=== PATIENT | female | born 1965 | race Caucasian/White ===

== ENCOUNTER 2021-04-20 09:53 | Outpatient (REF) | payer OTHER, SELFPAY ==
--- NOTE | ~2021-04-20 | MM_ITS ---
EXAMINATION: MM SCREENING DIGITAL BREAST TOMOSYNTHESIS, BILATERAL CLINICAL INFORMATION: Screening. Asymptomatic. The lifetime risk of breast cancer based on the Tyrer-Cuzick Model is 6%. COMPARISON: Mammography: 08/07/2018, 07/21/2014 TECHNIQUE: Digital breast tomosynthesis is performed in both the craniocaudal and mediolateral oblique views along with computer-aided detection (CAD). Synthesized 2D images are generated from the tomosynthesis. FINDINGS: There are scattered areas of fibroglandular density (ACR BI-RADS breast composition Category b). There are no significant masses, abnormal calcifications, or other abnormalities. The axilla and skin contours are unremarkable. MM/MM tomosynthesis screening BI IMPRESSION: No mammographic evidence of malignancy. ASSESSMENT: BI-RADS 1: Negative RECOMMENDATION: Routine annual mammography screening. This patient's information was entered into a reminder system with a target due date for their next mammogram.
== END 2021-04-20 09:54 | disposition home or self-care (01) ==
LOC: HO.MAMMO 09:53
PROVIDERS: Visit Provider Internal Medicine
DX: Z12.31 Encounter for screening mammogram for malignant neoplasm of breast (principal)
CPT/HCPCS: 77063; 77067

== ENCOUNTER 2022-03-03 12:26 | Outpatient (REF) | payer OTHER, SELFPAY ==
[2022-03-03 12:57] LABS: Binax Internal Control QC Valid; Binax Now Covid-19 Ag Negative (Negative)
== END 2022-03-03 12:27 | disposition home or self-care (01) ==
LOC: HO.HMGCLDS 12:26
PROVIDERS: Visit Provider Internal Medicine
DX: Z20.822 Contact with and (suspected) exposure to COVID-19 (principal); J06.9 Acute upper respiratory infection, unspecified
CPT/HCPCS: 87811; C9803

== ENCOUNTER 2022-04-28 15:29 | Outpatient (REF) | payer OTHER, SELFPAY ==
--- NOTE | ~2022-04-28 | MM_ITS ---
EXAMINATION: MM SCREENING DIGITAL BREAST TOMOSYNTHESIS, BILATERAL CLINICAL INFORMATION: Screening. Asymptomatic. The lifetime risk of breast cancer based on the Tyrer-Cuzick Model is 6.2%. COMPARISON: Mammography: April 20, 2021 and studies dating back to May 12, 2012 TECHNIQUE: Digital breast tomosynthesis is performed in both the craniocaudal and mediolateral oblique views along with computer-aided detection (CAD). Synthesized 2D images are generated from the tomosynthesis. FINDINGS: The breasts are heterogeneously dense, which may obscure small masses (ACR BI-RADS breast composition Category c). There are no significant masses, abnormal calcifications, or other abnormalities. MM/MM tomosynthesis screening BI IMPRESSION: No significant changes from prior exam. ASSESSMENT: BI-RADS 1: Negative RECOMMENDATION: Routine annual mammography screening. This patient's information was entered into a reminder system with a target due date for their next mammogram.
== END 2022-04-28 15:30 | disposition home or self-care (01) ==
LOC: HO.MAMMO 15:29
PROVIDERS: PCP Family Medicine; Visit Provider Family Medicine
DX: Z12.31 Encounter for screening mammogram for malignant neoplasm of breast (principal)
CPT/HCPCS: 77063; 77067

== ENCOUNTER 2023-08-13 15:31 | Outpatient (REF) | payer OTHER, SELFPAY | END 2023-08-13 15:32 | disposition home or self-care (01) | LOC: HO.MAMMO 15:31 | PROVIDERS: PCP Family Medicine; Visit Provider Family Medicine | DX: Z12.31 Encounter for screening mammogram for malignant neoplasm of breast (principal) | CPT/HCPCS: 77063; 77067 ==

== ENCOUNTER → 2023-08-13 16:15 | Outpatient (BNV) | payer OTHER, SELFPAY | PROVIDERS: PCP Family Medicine; Visit Provider Radiology Diagnostic Radiology | DX: Z12.31 Encounter for screening mammogram for malignant neoplasm of breast (principal) | CPT/HCPCS: 77063; 77067 ==

== ENCOUNTER 2023-11-26 15:22 | Outpatient (AMB) | payer OTHER, SELFPAY ==
--- NOTE | 2023-11-26 15:23 | AM.OFFWIN_ITS ---
Intake Vital Signs 3 11/26/23 15:27 Height 5 ft 3 in Weight 167 lb BMI 29.6 BP 130/82 Blood Pressure Location Rt brachial Position Sitting Pulse 92 Pulse Source Pulse Oximeter Temp 97.9 F Temp Source Temporal Artery Scan Pulse Oximetry (%) 97 Intake Visit Reasons: Ep Pain on top of left foot , cant walk Intake Note: pt is here for pain on top of left foot, unable to walk Patient Tobacco Use Status: Never used Tobacco Allergies No Known Allergies [No Known Allergies*] Allergy (Verified 11/26/23 15:24) Do you need a note to return to daycare/school/sports/work: No HPI HPI Comments 2 History of Present Illness0 Details 58 y/o female patient who presents to [facility] with c/o Pain on her left foot - dorsal aspect. Pain started today afternoon. Denies trauma or injury. PFSH Social History Patient Tobacco Use Status: Never used Tobacco Review of Systems Const All systems reviewed & are unremarkable except as noted in HPI and below Physical Exam Vital Signs: Last Vital Signs Temp 97.9 F 11/26/23 15:27 Pulse 92 11/26/23 15:27 BP 130/82 11/26/23 15:27 Pulse Ox 97 11/26/23 15:27 BMI result Body Mass Index 29.6 Const General: comfortable and no acute distress Orientation/consciousness: patient oriented x3 Neuro Other: Walks with a limp due to pain General: patient oriented x3 and moves all extremities Extrem Right lower extremity: normal to inspection and full ROM Left lower extremity: foot Details: normal capillary refill, normal to inspection, tenderness Location: of the dorsal foot Location: medially and toes with normal ROM; no unusual warmth and no edema Ankle/foot/toe images: 2 1. Tenderness to palpation, normal color skin, no trauma or injury. Psych Speech and movement: Normal speech and movement present Assessment & Plan Assessment & Plan (1) Foot pain, left: Code(s): M79.672 - Pain in left foot Plan: -Rest - IceHot - Ibuprofen for pain relief - Wrapped foot with Benedicto Medications: New 2 diclofenac sodium 1% (Voltaren Arthritis Pain) apply directly to the top of affected foot 2 grams topical BID 100 grams 0RF M79.672 - Pain in left foot ibuprofen 800 mg PO Q8H 30 tabs 0RF M79.672 - Pain in left foot cyclobenzaprine 10 mg PO BEDTIME 20 tabs 0RF M79.672 - Pain in left foot Coding Level of Care Code Est Pt Level 3 (93438) Diagnoses Foot pain, left M79.672 Time Spent (min) 15
[2023-11-26 15:27] VITALS: BP 130/82; PULSE 92; TEMP 36.6; O2SAT 97; BMI 29.6
== END 2023-11-26 16:34 | disposition home or self-care (01) ==
PROVIDERS: PCP Family Medicine; Visit Provider Nurse Practitioner Family
DX: M79.672 Pain in left foot (principal)
CPT/HCPCS: 99213

== ENCOUNTER 2024-07-05 12:29 | Outpatient (AMB) | payer OTHER, SELFPAY ==
--- OUTSIDE RECORDS SUMMARY | 2024-07-05 12:31 | XMS_ITS ---
Author Name [facility] Organization Unknown History of Medication Use Medication Directions Dispensed Refills Start Date End Date Stat venlafaxine 37.5 mg tablet TAKE 1 TABLET BY MOUTH AT BEDTIME FOR 7 DAYS, THEN 2 TABLETS AT BEDTIME 01/31/2023 active meclizine 25 mg tablet TAKE 1 TABLET BY MOUTH THREE TIMES A DAY NEEDED FOR DIZZINESS 01/31/2023 active meclizine 25 mg tablet TAKE 1 TABLET BY MOUTH THREE TIMES A DAY NEEDED FOR DIZZINESS 01/31/2023 active duloxetine 30 mg capsule,delayed release TAKE 1 CAPSULE BY MOUTH EVERY DAY 01/31/2023 active hydroxyzine HCl 25 mg tablet TAKE 1 TABLET BY MOUTH EVERY DAY IN THE EVENING 01/31/2023 active cholecalciferol (vitamin D3) 50 mcg (2,000 unit) capsule TAKE 1 CAPSULE BY MOUTH EVERY DAY 01/31/2023 active ondansetron 4 mg disintegrating tablet TAKE 1 TABLET BY MOUTH EVERY 8 HOURS NEEDED 01/31/2023 active Problems Problem Status Onset Date Problem Type Date of Resoluti on Source Pain of left knee joint active 2023-01-28 ProblemAct ENS_AONECT
--- NOTE | 2024-07-05 13:28 | AM.OFFWIN_ITS ---
Intake Vital Signs 07/05/24 13:29 Weight 170 lb 6 oz BP 128/80 Blood Pressure Location Rt brachial Position Sitting Pulse 73 Pulse Source Pulse Oximeter Pulse Oximetry (%) 97 Oxygen Delivery Method Room Air Intake Visit Reasons: EP-dizziness Intake Note: Patient here for nausea and dizziness that started Thursday. Patient Tobacco Use Status: Never used Tobacco Allergies No Known Allergies [No Known Allergies*] Allergy (Verified 07/05/24 13:29) Do you need a note to return to daycare/school/sports/work: No HPI HPI Comments History of Present Illness Details This is a 58-year-old female with a past medical history of hyperlipidemia and vertigo presenting for evaluation of nausea and lightheadedness that she has had intermittently over the past 4 days. Patient states at 4:00 a.m. on ThursdayJuly 01 the patient woke up to use the bathroom and she felt there was an intense spinning sensation coupled with lightheadedness that lasted for under 1 hour. Since that time the patient has not had such a significant episode but has felt lightheaded with nausea. Patient denies any vomiting, chest pain, shortness of breath, fevers, chills, visual changes or sinus pressure. Patient has not taken any medication for treatment of her symptoms. 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 [facility] Social History Patient Tobacco Use Status: Never used Tobacco Review of Systems Const All systems reviewed & are unremarkable except as noted in HPI and below Reports no additional complaints, Denies body aches, Denies daytime sleepiness, Denies difficulty sleeping, Denies frequent falls and Denies night sweats Eyes Reports no additional complaints, Denies change in vision, Denies loss of peripheral vision, Denies seeing flashes and Denies spots in vision ENT Reports no additional complaints, Reports vertigo, Reports dizziness and Denies otalgia Card Reports no additional complaints and Denies syncope Resp Reports no additional complaints GI Reports no additional complaints Reports no additional complaints Musc Reports no additional complaints Skin/Breast Reports system reviewed and no additional complaints, except as documented Neuro Reports no additional complaints, Reports as per HPI, Reports vertigo, Reports dizziness, Denies syncope, Denies frequent falls and Denies lack of coordination Psych Reports no additional complaints Endo Reports no additional complaints Gerard/Lymph Reports no additional complaints Aller/Immun Reports no additional complaints Physical Exam Vital Signs: Last Vital Signs Pulse 73 07/05/24 13:29 BP 128/80 07/05/24 13:29 Pulse Ox 97 07/05/24 13:29 Oxygen Delivery Method Room Air 07/05/24 13:29 Const General: cooperative, healthy appearing, comfortable, no acute distress, well developed, alert, awake and Physically active Nutritional Appearance: average body habitus Orientation/consciousness: patient oriented x3 Limitations: no limitations HEENT Head: Yes normal to inspection, Yes normocephalic and Yes atraumatic Ears: hearing grossly normal bilaterally, TM's normal bilaterally and EAC's normal General nose exam: Normal external nose present Face and sinus: Yes normal facial exam and Yes sinuses nontender Mouth: Normal oral and palatal mucosa present and moist mucous membranes Throat: Yes posterior oropharynx normal Eyes General: appearance normal, both eyes and all related structures Visual Altamirano: normal visual altamirano by confrontation Alignment and Position: alignment normal Periorbital: periorbital findings normal Eyelids: Yes eyelids normal Conjunctivae: conjunctivae normal Sclerae: sclerae normal Corneas: corneas normal Pupils: Equal, round and reactive pupils present and Pupils normal by confrontation EOM: EOMs intact bilaterally Direct Ophthalmoscopy: no photophobia Cardio Rate: regular rate Rhythm: regular rhythm Neuro General: patient oriented x3 Cranial nerves: Yes CN's II-XII intact bilaterally and Yes Equal, round and reactive pupils present Cognition (Neuro): normal cognition Gait exam (Neuro): Normal gait present Psych Appearance: grossly normal Mental Status: mental status grossly normal Insight: Good insight present (Psych) Judgement: Good judgement present (Psych) Assessment & Plan Assessment & Plan (1) Lightheadedness: Comment: Patient has not had another significant episode of vertigo; etiologies of vertigo and lightheadedness have been reviewed with this patient and she will be discharged home with meclizine. Code(s): R42 - Dizziness and giddiness Plan: Meclizine up to 3 times a day the as needed for lightheadedness; please follow up with your primary care provider within 4 weeks for a re-evaluation of your symptoms and further testing as needed. (2) Nausea: Code(s): R11.0 - Nausea Plan: Zofran ODT t.i.d. p.r.n. nausea. Patient is encouraged to stay very well hydrated with clear fluids. Medications: New ondansetron 4 mg PO Q8H PRN 10 tabs 0RF nausea and vomiting meclizine 12.5 mg PO TID PRN 10 tabs 0RF dizziness Coding Level of Care Code Est Pt Level 3 (78213) Diagnoses Lightheadedness R42 Nausea R11.0 Time Spent (min) 20
[2024-07-05 13:29] VITALS: BP 128/80; PULSE 73; O2SAT 97
== END 2024-07-05 14:26 | disposition home or self-care (01) ==
PROVIDERS: PCP Family Medicine; Visit Provider Physician Assistant
DX: R42 Dizziness and giddiness (principal); R11.0 Nausea

== ENCOUNTER → 2024-07-05 12:29 | Outpatient (BNVA) | payer OTHER, SELFPAY | PROVIDERS: PCP Family Medicine; Visit Provider Physician Assistant ==

== ENCOUNTER 2024-10-03 09:29 | Outpatient (REF) | payer OTHER, SELFPAY | END 2024-10-03 09:30 | disposition home or self-care (01) | LOC: HO.MAMMO 09:29 | PROVIDERS: Visit Provider Family Medicine | DX: Z12.31 Encounter for screening mammogram for malignant neoplasm of breast (principal) | CPT/HCPCS: 77063; 77067 ==

== ENCOUNTER → 2024-10-03 10:00 | Outpatient (BNV) | payer OTHER, SELFPAY | PROVIDERS: Visit Provider Internal Medicine | DX: Z12.31 Encounter for screening mammogram for malignant neoplasm of breast (principal) | CPT/HCPCS: 77063; 77067 ==

== ENCOUNTER 2025-04-19 12:46 | Outpatient (AMB) | payer OTHER, SELFPAY ==
[2025-04-19 13:49] VITALS: BP 128/70; PULSE 71; O2SAT 100; BMI 30.5
--- NOTE | 2025-04-19 13:49 | AM.OFFWIN_ITS ---
Intake Vital Signs 04/19/25 13:49 Height 5 ft 3 in Weight 172 lb BMI 30.5 BP 128/70 Blood Pressure Location Rt brachial Position Sitting Pulse 71 Pulse Source Pulse Oximeter Pulse Oximetry (%) 100 Intake Visit Reasons: ep sick since thursday possible flu Intake Note: pt presents chest congestion with coughing, sinus congestion, fever, body aches, ear pain Patient Tobacco Use Status: Never used Tobacco Allergies No Known Allergies (No Known Allergies*) Allergy (Verified 04/19/25 13:50) Do you need a note to return to daycare/school/sports/work: Yes HPI HPI Comments History of Present Illness Details History - The patient is a 59-year-old female pr esenting with symptoms suggestive of a viral upper respiratory infection. - Symptoms began on Thursday, including merissa dy aches, headache, nasal congestion, and sore throat. - Initial symptoms included chills and f ever, but no fever currently. - No chest pain, shortness of breath, ab dominal pain, vomiting, or diarrhea reported. - The patient has been using Theraflu fo r symptom management and received a flu shot last month. - She was told by her employer to have a flu test done. - She did have her flu vaccine 2 weeks a go. - She denies sick contacts, smoking, or travel. Physical Exam General: Cooperative, healthy appearing, comfortable and no acute distress Orientation/consciousness: Patient oriented x3 Limitations: No limitations Head: Headache reported Ears: Hearing grossly normal bilaterally, external ears normal and TM's normal bilaterally Nose: Stuffy nose reported, normal external nose present, normal nares present, and no nasal discharge present. Face and sinus: Sinuses nontender to palpation. Mouth: Normal oral and palatal mucosa present and moist mucous membranes noted. Throat: Sore throat reported. Tonsils normal. Uvula is midline. Posterior oropharynx with erythema and no exudates. Eyes: Appearance normal, both eyes and all related structures Neck: Normal visual inspection, full ROM. No lymphadenopathy noted. Respiratory: Clear to auscultation bilaterally. Normal respiratory effort, able to speak in complete sentences. No respiratory distress, not tachypneic, no tripod positioning and no use of accessory muscles. Cardiovascular: Regular rate and rhythm. Normal S1 and S2 Skin: No rashes or lesions noted Patient was informed and verbally consented to the use of an ambient scribe for clinic note documentation during this visit [facility] Social History Patient Tobacco Use Status: Never used Tobacco Review of Systems Const All systems reviewed & are unremarkable except as noted in HPI and below Physical Exam Vital Signs: Last Vital Signs Pulse 71 04/19/25 13:49 BP 128/70 04/19/25 13:49 Pulse Ox 100 04/19/25 13:49 BMI result Body Mass Index 30.5 Assessment & Plan Assessment & Plan (1) Upper respiratory tract infection: Code(s): J06.9 - Acute upper respiratory infection, unspecified Qualifiers: URI type: unspecified viral URI Qualified Code(s): J06.9 - Acute upper respiratory infection, unspecified Plan Most likely viral illness vs flu vs covid vs RSV plan - A respiratory panel was conducted to rule out influenza. - Symptomatic treatment with Theraflu was recommended. - Flonase and zyrtec D daily as well - The patient was advised to continue monitoring symptoms and return if they worsen. - tylenol or motrin as needed for pain or fever - follow up with PCP Orders: Orders Resp Pathogen Panel - [facility] Today J06.9 - Acute upper respiratory infection, unspecified Medications: New fluticasone propionate 50 mcg/actuation administer into each nostril 1 spray intranasal Q12H 16 grams 0RF cetirizine-pseudoephedrine 5-120 mg ER 1 tab PO BID 14 tabs 0RF 7 days Coding Level of Care Code Est Pt Level 3 (40867) Diagnoses Viral upper respiratory tract infection J06.9 URI type: unspecified viral URI
--- OUTSIDE RECORDS SUMMARY | 2025-04-19 16:08 | XMS_ITS | Clinical Summary ---
Author Organization [facility] Address [address] [address] Phone Care Team Providers Care Senior Cytotechnologist Name Role Phone Shanti Lynch MD Primary Care Pr ovider Allergies No known active allergies Medications DULoxetine (CYMBALTA) 30 MG capsule Take 1 capsule by mouth every morning. 3 Active cholecalciferol (VITAMIN D3) 2,000 unit capsule Take 1 tablet by mouth daily. 2 Active methylPREDNISol one (MEDROL DOSEPACK) 4 mg tablet follow package directions 21 tablet 3 Active Social History Tobacco Use Types Packs/Day Years Used Date Smoking Tobacco: Never Assessed Education Answer Date Recorded Are you interested in more education? Not on suresh e 11/01/2022 Are you concerned about learning? Not on file 11/01/2022 No 11/01/2022 No 11/01/2022 Digital Access Answer Date Recorded No 12/02/2022 No 12/02/2022 Reliable internet access at home? Not on file 12/02/2022 Device with a working camera? Not on file Intimate Partner Violence Answer Date R ecorded Are you denied basic needs s uch as food, clothing, or medical care? No 04/12/2023 In the past 12 months have y ou been in a relationship with a person who hurts, threatens, or tries to control you? No 04/12/2023 Are you denied basic needs s uch as food, clothing, or medical care? No 04/12/2023 In the past 12 months have y ou been in a relationship with a person who hurts, threatens, or tries to control you? No 04/12/2023 Comments Unknown Sex and Gender Information Value Date Recorded Sex Assigned at Female 08/03/2022 1:13 PM EST Legal Sex Female 1:11 PM EST Gender Identity Female 08/03/2022 1:13 PM EST Sexual Orientation Straight 08/03/2022 1: 13 PM EST Last Filed Vital Signs Vital Sign Reading Time Taken Comments Blood Pressure 124/76 04/12/2023 3:03 PM EDT Pulse 72 04/12/2023 3:03 PM EDT Temperature 36.4 C (97.6 F) 04/12/2023 3:03 PM EDT Respiratory Rate 19 04/12/2023 3:03 PM EDT Oxygen Saturation 98% 04/12/2023 3:03 PM EDT Inhaled Oxygen Concentration - - Weight 73 kg (161 lb) 04/12/2023 12:36 PM EDT Height 160 cm (5' 3 ) 04/12/2023 12:36 PM EDT Body Mass Index 28.52 04/12/2023 12:36 PM EDT Plan of Treatment Health Maintenance Due Date Last Done Comments Adult Td,Tdap Booster 1965 LIPID PANEL 1965 DEPRESSION SCREENING 1977 SMOKING Hx and SMOKELESS TOB ACCO SCREENING 1978 HEPATITIS C SCREENING 09/10/1983 HIV ONE-TIME SCREENING (18-6 5 YEARS) 09/10/1983 PAP SMEAR 1986 MAMMOGRAM 2005 COLOGUARD 2010 COLONOSCOPY 2010 COLORECTAL CANCER SCREENING 2010 FIT TEST 2010 FOBT 2010 SIGMOIDOSCOPY 2010 VIRTUAL COLONOSCOPY 2010 PNEUMOCOCCAL VACCINES (50+ y ears) (1 of 1 - PCV) 09/10/2015 ZOSTER VACCINES (1 of 2) 09/10/2015 INFLUENZA VACCINE (#1) 2025 COVID-19 VACCINE ( - 2024-2 6 season) 2025 SCREENING FOR DIABETES 08/03/2025 08/03/2022 RSV VACCINE (1 - 1-dose 75+ series) 2040 HEPATITIS A VACCINES Aged Out No long er eligible based on patient's age to complete this topic HIB VACCINES Aged Out No longer eligi ble based on patient's age to complete this topic MENINGOCOCCAL VACCINES (ACWY) Aged Out No longer eligible based on patient's age to complete this topic MENINGOCOCCAL VACCINES (B) Aged Out N o longer eligible based on patient's age to complete this topic Medical Devices Not on file Insurance [facility] HMO Care Teams Senior Cytotechnologist Relationship Specialty Start Date End Date Shanti Lynch MD PCP - General Family Medicine 04/12/23 Additional Source Comments The information contained in this document represents components of the legal health record. It is not the complete legal health record.[facility]
--- OUTSIDE RECORDS SUMMARY | 2025-04-19 16:08 | XMS_ITS | Clinical Summary ---
Author Organization 175 [facility] Address [address] [place] [address] Phone Care Team Providers Care Java Xml Developer Name Role Phone Shanti Lynch MD Primary Care Pr ovider Allergies Active Allergy Reactions Criticality Noted Date Comments Levonorgestrel-Ethinyl Estrad 2024 Medications cholecalciferol (VITAMIN D-3) 50 mcg (2,000 unit) capsule Take 1 capsule (2,000 Units total) by mouth 1 (one) time each day. 4 Active hydrOXYzine HCL (ATARAX) 25 mg tablet Take 1 tablet (25 mg total) by mouth 1 (one) time each day in the evening. 2 Active meclizine (ANTIVERT) 25 mg tablet Take 1 tablet (25 mg total) by mouth 3 (three) times a day if needed. Active ondansetron ODT (ZOFRAN-ODT) 4 mg disintegrating tablet Take 1 tablet (4 mg total) by mouth every 8 (eight) hours if needed. Active venlafaxine (EFFEXOR) 37.5 mg tablet TAKE 1 TABLET BY MOUTH AT BEDTIME FOR 7 DAYS, THEN 2 TABLETS AT BEDTIME Active albuterol HFA (PROAIR HFA ; PROVENTIL HFA ; VENTOLIN HFA) 90 mcg/actuation inhaler TAKE 2 PUFFS BY MOUTH EVERY 3 TO 4 HOURS NEEDED 5 Active estradioL (ESTRACE) 0.01 % (0.1 mg/gram) vaginal cream 1g PV nightly x2 weeks then twice weekly thereafter 34 g 3 5 Active Active Problems Problem Noted Date Diagnosed Date Anxiety and depression 06/17/2024 DJD (degenerative joint disease) of cervical spi ne 04/07/2024 Lumbar spondylosis 04/07/2024 Trochanteric bursitis of left hip 04/07/2024 Primary insomnia 04/06/2024 Arthralgia of left knee 01/28/2023 Mixed hyperlipidemia 01/23/2023 Neuroforaminal stenosis of lumbosacral spine Chronic urticaria 09/29/2022 Overweight (BMI 25.0-29.9) 09/29/2022 Prediabetes 01/30/2020 Vitamin D insufficiency 10/04/2018 ARTHUR (stress urinary incontinence, female) 2017 Overview (06/17/2024): Last Assessment & Plan: Recommend kegel exercises. Chronic constipation 01/30/2017 Overview (06/17/2024): Last Assessment & Plan: Recommended Senna to have soft BM daily Overactive bladder 07/04/2016 Overview (06/17/2024): Last Assessment & Plan: Discussed medications for OAB, however she declines. Offered referral to urogynecology, however she declines. Reviewed recommendation for avoidance of bladder irritants and bladder training. Uterine leiomyoma 12/14/2015 Encounters Date Type Department Care Team Description 02/27/2025 2:45 PM EDT Office Visit [facility] [address] [place] [address] Teresa Espinoza DO Nocturia (Primary Dx); Fibroids from Last 3 Months Immunizations Immunization Administration Dates Next Due Influenza trivalent, 0.5mL, preservative free (Fluarix; FluLaval; Fluzone) ages 6mo and older (Afluria) 3 years and older 03/23/2024 Moderna SARS-CoV-2 COVID-19, mRNA, LNP-S, preservative free 03/23/2024 PPD Test 09/29/2017 Pfizer SARS-CoV-2 COVID-19, mRNA, LNP-S, preservative free 08/05/2020,07/15/2020 Tdap Tetanus diptheria acell ular pertussis (Boostrix; Adacel) 7yo and older 10/01/2018 Surgical History Surgery Date Site/Laterality Comments TUBAL LIGATION PROCEDURE: HISTORICAL TUBAL LIGATION OTHER SURGICAL HISTORY 12/10/15 PROCEDURE: COLON CA SCRN NOT HI RSK IND; COMMENT: nl to the cecum Medical History Medical History Date Comments Depression DX:Depression Anxiety DX:Anxiety RALPH (iron deficiency anemia) DX: RALPH (iron deficiency anemia) Chronic constipation 01/30/2017 DX:Chronic constipation COVID-19 virus detected 11/02/2019 DX:COVID -19 virus detected; COMMENT: 10/28/2019 Family History Medical History Relation Name Comments Diabetes Aunt kidney problems ; +smoker Alcohol abuse Brother 1 liver problems ; ascites Drug abuse Brother 2 Other: tongue cancer Brother 3 +smoker and EtOH abuse Stomach cancer Father Brain Aneurysm Maternal Grandmother ruptu re Heart attack Mother TIA, DM, obese Lung cancer Mother Drug abuse Son 1 Stomach cancer Uncle maternal Breast cancer Neg Hx Colon cancer Neg Hx Ovarian cancer Neg Hx Pancreatic cancer Neg Hx Prostate cancer Neg Hx Uterine cancer Neg Hx Relation Name Status Comments Aunt DM II Brother 1 Alive EtOH Brother 2 Tongue CA Brother 3 Addiction; pass ed in [place] Daughter 1 Alive 1984; Jennifer; healthy Daughter 2 Alive 1986; Leigh Ann; ov erweight; otherwise healthy Father Throat CA Maternal Grandfather Maternal Grandmother Mother Depression, T2D M, [place], [place] Paternal Grandfather unknown Paternal Grandmother unknown Son 1 Alive 1985; Huey; add iction Son 2 Alive 1993; Abimael; hea lthy Uncle maternal Social History Tobacco Use Types Packs/Day Years Used Date Smoking Tobacco: Never Smokeless Tobacco: Never Tobacco Cessation:Counseling Given: Not Answered Alcohol Use Standard Drinks/Week Comments No 0 (1 standard drink = 0.6 oz pur e alcohol) Comments Unknown Sex and Gender Information Value Date Recorded Sex Assigned at Not on file Legal Sex Female 1:56 PM EST Gender Identity Not on file Sexual Orientation Not on file Obstetrics History Para Term AB IAB SAB Ectopic Multiple Livin g Live Births 4 4 4 4 4 Date Outcome GA Total Labor Labor/2nd/3rd Weight Sex Type Anes PTL Marlin A1 A5 Name Clin Term Living Term Living Term Living Term Living Last Filed Vital Signs Vital Sign Reading Time Taken Comments Blood Pressure 114/67 02/27/2025 2:33 PM EDT Pulse 97 02/27/2025 2:33 PM EDT Temperature 36.3 C (97.3 F) 11/17/2024 12:13 PM EDT Respiratory Rate 14 02/27/2025 2:33 PM EDT Oxygen Saturation 96% 11/17/2024 12:13 PM EDT Inhaled Oxygen Concentration - - Weight 76.7 kg (169 lb) 02/27/2025 2:33 PM EDT Height 150 cm (4' 11.06 ) 02/27/2025 2:33 PM EDT Body Mass Index 34.07 02/27/2025 2:33 PM EDT Plan of Treatment Upcoming Encounters Date Type Department Care Team (Late st Contact Info) Description 05/09/2025 1:00 PM EST Office Visit Urogynecology [address] [phone] Maria A Payne MD [address] [place] [address] [address] [place] [address] 05/11/2025 4:00 PM EST Office Visit [facility] [address] [facility] [address] [place] [phone] Lorene Burnette PA [address] [facility] [address] [place] [address] 06/19/2025 3:00 PM EST Office Visit Adult Medicine [facility] - [address] [phone] Shanti Lynch MD [address] [place] [address] Health Maintenance Due Date Last Done Comments Colorectal Cancer Screening: Colonoscopy 1965 Hepatitis B Vaccines (1 of 3 - 19+ 3-dose series) 1984 Pneumococcal Vaccine: 50+ Years (1 of 1 - PCV) 09/10/2015 Zoster Vaccines (1 of 2) 09/10/2015 Social Influencers of Health Screening 06/14/2022 Depression Screening 07/06/2024 COVID-19 Vaccine (4 - 2024-2 6 season) 2025 03/23/2024, 08/05/2020, 07/15/2020 Influenza Vaccine (#1) 2025 03/23/2024 Cervical Cancer Screening: HPV 10/16/2025 10/16/2020 Breast Cancer Screening 10/17/2026 10/18/19 25, 12/09/2016 DTaP,Tdap,and Td Vaccines (2 - Td or Tdap) 10/01/2028 10/01/2018 Cholesterol Screening (Lipid Panel) 04/15/2029 04/15/2024, 04/15/2024 RSV Immunization Adult Patients (1 - 1-dose 75+ series) 2040 Hepatitis C Screening Completed 10/15/2011 HIV Screening Completed 06/10/2017 HIB Vaccines Aged Out No longer eligi ble based on patient's age to complete this topic HPV Vaccines Aged Out No longer eligi ble based on patient's age to complete this topic Hepatitis A Vaccines Aged Out No long er eligible based on patient's age to complete this topic IPV Vaccines Aged Out No longer eligi ble based on patient's age to complete this topic MMR Vaccines Aged Out No longer eligi ble based on patient's age to complete this topic Meningococcal ACWY Vaccine Aged Out N o longer eligible based on patient's age to complete this topic Meningococcal B Vaccine Aged Out No l onger eligible based on patient's age to complete this topic RSV Immunization Patients Under 20 months Aged Out No longer eligible b ased on patient's age to complete this topic Varicella Vaccines Aged Out No longer eligible based on patient's age to complete this topic Procedures Procedure Name Priority Date/Time Associated Diagnosis Comments MG MAMMO DIGITAL DIAGNOSTIC BILAT Routine 10/17/2024 1:35 PM EDT LIPID PANEL Routine 04/15/2024 HPV Routine 10/16/2020 HIV SCREENING Routine 06/10/2017 HEPATITIS C SCREENING Routine 10/15/2011 from Last 3 Months or Most Recently Relevant to Health Maintenance Results * MG Mammo Digital Diagnostic bilat (10/17/2024 1:35 PM EDT) Anatomical Region Laterality Modality Breast Bilateral Mammography Historical Provider IMG BI PROCEDURES Final R esult * (ABNORMAL) Lipid panel (04/15/2024) [facility] LDL/HDL Ratio 3 0 - 4 Triglycerides 57 0 - 150 mg/dL Cholesterol 251(A) 0 - 200 mg/dL HDL 99 >=40 mg/dL LDL Cholesterol 141(A) 0 - 100 mg/dL Blood Venous blood specimen / Unknown Result [facility] Provider LAB BLOOD ORDERABLES Michaela l Result * Cervical Cancer Screening: HPV (10/16/2020) [facility] Cervical Cancer Screening: HPV negative, abstracted [facility] Provider HEALTH MAINTENANCE Final Result * HIV Screening (06/10/2017) [facility] HIV Screening abstracted [facility] Provider HEALTH MAINTENANCE Final Result * Hepatitis C Screening (10/15/2011) [facility] Hepatitis C Screening abstracted [facility] Provider HEALTH MAINTENANCE Final Result from Last 3 Months or Most Recently Relevant to Health Maintenance Insurance [facility] Care Teams Java Xml Developer Relationship Specialty Start Date End Date Shanti Lynch MD [address] [facility] [place] PCP - General Internal Medicine 03/03/22
--- OUTSIDE RECORDS SUMMARY | 2025-04-19 16:08 | XMS_ITS ---
Author Name [facility] Organization Unknown History of Medication Use Medication Directions Dispensed Refills Start Date End Date [facility] cholecalciferol (vitamin D3) 50 mcg (2,000 unit) capsule TAKE 1 CAPSULE BY MOUTH EVERY DAY active duloxetine 30 mg capsule,delayed release TAKE 1 CAPSULE BY MOUTH EVERY DAY active hydroxyzine HCl 25 mg tablet TAKE 1 TABLET BY MOUTH EVERY DAY IN THE EVENING active meclizine 25 mg tablet TAKE 1 TABLET BY MOUTH THREE TIMES A DAY NEEDED FOR DIZZINESS active ondansetron 4 mg disintegrating tablet TAKE 1 TABLET BY MOUTH EVERY 8 HOURS NEEDED active venlafaxine 37.5 mg tablet TAKE 1 TABLET BY MOUTH AT BEDTIME FOR 7 DAYS, THEN 2 TABLETS AT BEDTIME active Problems Problem Status Onset Date Problem Type Date of Resoluti on Source Pain of left knee joint active 2023-01-28 ProblemAct ENS_AONECT Encounters Encounter Type Encounter Reason Primary Diagnosis Location Date Ambulatory [facility] 03/19/2023 Ambulatory [facility] 01/28/2023 Ambulatory [facility] 01/28/2023 Ambulatory [facility] 01/28/2023 Ambulatory [facility] 01/22/2023 Ambulatory [facility] 01/21/2023 Ambulatory [facility] 01/21/2023 Ambulatory [facility] 01/21/2023 Ambulatory [facility] 12/12/2022 Ambulatory [facility] 12/10/2022 Ambulatory [facility] 11/19/2022 Care Team Organization Name Specialty Phone Email Start Date End Da te [facility] LUCHO REINA [facility] [email or web address] 11/10/2022 4 [facility] Termed, PROVIDER Primary Care 05/13/202202/03 4
--- OUTSIDE RECORDS SUMMARY | 2025-04-19 16:08 | XMS_ITS | Clinical Summary ---
Author Organization [facility] Address [address] [place] [address] Care Team Providers Care Collections Officer Name Role Phone Unavailable Primary Care Provider Unavailabl e Allergies No known active allergies Medications Medication Sig Dispensed Refills Start Date End Date Status Cholecalciferol 50 MCG (1999) CAPS Take 1 capsule by mouth daily. 0 07/02/2022 Active hydrOXYzine (ATARAX) 25 MG tablet Take 1 tablet (25 mg total) by mouth every evening. 0 07/01/2022 Active Social History Tobacco Use Types Packs/Day Years Used Date Smoking Tobacco: Never Assessed Alcohol Use Standard Drinks/Week Comments Never 0 (1 standard drink = 0.6 oz pur e alcohol) Sex and Gender Information Value Date Recorded Sex Assigned at Not on file Gender Identity Not on file Sexual Orientation Not on file Job Start Date Occupation Industry Not on file Not on file Not on file Last Filed Vital Signs Vital Sign Reading Time Taken Comments Blood Pressure - - Pulse - - Temperature - - Respiratory Rate - - Oxygen Saturation - - Inhaled Oxygen Concentration - - Weight 74.8 kg (165 lb) 08/22/2022 2:22 PM EST Height 160 cm (5' 3 ) 08/22/2022 2:22 PM EST Body Mass Index 29.23 08/22/2022 2:22 PM EST Plan of Treatment Health Maintenance Due Date Last Done Comments Hepatitis B Vaccines (1 of 3 - 3-dose series) 1965 Hepatitis C Screening 1965 Depression Screening 1977 BMI Counseling 09/10/1983 Preventative Health Evaluation 09/10/1983 Cervical Cancer Screening (Pap Smear) 1986 Colon Cancer Screening (Colonoscopy) 2010 Breast Cancer Screening (Mammogram) 09/10/2015 Shingrix-Zoster Vaccine (1 o f 2) 09/10/2015 COVID-19 Vaccine (2024-2 6 season) 2025 08/05/2020, 07/15/2020 Influenza Vaccine (#1) 2025 DTap / Tdap / Td (2 - Td or Tdap) 10/01/2028 10/01/2018 Pneumococcal Vaccine Aged Out No long er eligible based on patient's age to complete this topic RSV Ped < 20 months Aged Out No longe r eligible based on patient's age to complete this topic
--- OUTSIDE RECORDS SUMMARY | 2025-04-19 16:08 | XMS_ITS | Encounter Summary ---
Author Organization [facility] Address [address] [place] [phone] Phone Care Team Providers Care Training And Development Specialist Name Role Phone Pcp, Unknown Primary Care Provider Shanti Kwan MD Primary Care Pr ovider Encounter Details Date Type Department Care Team (Late st Contact Info) Description 08/03/2022 Procedure Pass [facility] [place] Scan - [address] [address] Social History Tobacco Use Types Packs/Day Years Used Date Smoking Tobacco: Never Assessed Comments Unknown Sex and Gender Information Value Date Recorded Sex Assigned at Female 08/03/2022 1:13 PM EST Legal Sex Female 1:11 PM EST Gender Identity Female 08/03/2022 1:13 PM EST Sexual Orientation Straight 08/03/2022 1: 13 PM EST documented as of this encounter Functional Status * Calculated C-SSRS Risk Score (Lifetime/Recent) Answer Date of Assessment Author No Risk Indicated 08/03/2022 1:13 PM Deisy Lira, RN * Gleason Suicide Severity Rating Scale (Screener/Recent Self-Report) Question Answer Date of Assessment Author 1. Wish to be (Past 1 Month) No 023 1:13 PM Deisy Zimmerman, RN 2. Non-Specific Active Suici patric Thoughts (Past 1 Month) No 08/03/2022 1:13 PM Deisy Zimmerman, RN 6. Suicidal Behavior (Lifetime) No 1:13 PM Deisy Zimmerman, RN documented as of this encounter Plan of Treatment Not on file documented as of this encounter Visit Diagnoses Not on filedocumented in this encounter Care Teams Training And Development Specialist Relationship Specialty Start Date End Date Pcp, Unknown PCP - General 08/03/22 04/11/23 Shanti Lynch MD PCP - General Family Medicine 04/12/23 documented as of this encounter Additional Source Comments The information contained in this document represents components of the legal health record. It is not the complete legal health record.[facility]
== END 2025-04-19 14:56 | disposition home or self-care (01) ==
PROVIDERS: Visit Provider Physician Assistant Medical
DX: J06.9 Acute upper respiratory infection, unspecified (principal)

== ENCOUNTER 2025-04-19 12:46 | Outpatient (REF) | payer OTHER, SELFPAY ==
--- OUTSIDE RECORDS SUMMARY | 2025-04-19 19:28 | XMS_ITS | Data Portability ---
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 I had discussion regarding treatment options which included [id number] pain med occasions such as topical and oral analgesics and nonsteroidal anti-inflammator ies as well as formal physical therapy and cortisone injection. She opted for the following; 1. She wishes to hold off on intervention at this time. She will call us if she changes her mind. Indirect care and treatment in conjunction with Dr. Avery Additional treatment plan discussed with the patient in detail included the following; - Provider focused nonsteroidal anti-inflammator y regimen (discussed were the pros, cons, benefits and risks as well as any black box warnings) in patients over 60 years old they should be very cautious in taking these medications due to potential decreased kidney function and or elevated blood pressure. - Analgesic pain medication for pain suppression (discussed were the pros, cons, benefits and risks as well as any black box warnings) - The use of topical pain relieving medication were discussed - The use of ice to decrease inflammation and pain - The use of assistive ambulatory devices for ambulation and fall prevention - Formal specific guided physical therapy program I reviewed my findings at length with the patient today. We discussed the nature and etiology of this problem along with current treatment options. We discussed the expected course and outcomes and what to expect. We also discussed risks and benefits. All of their questions were answered today, and there was exhibited understanding and comprehension of all that was discussed. Time Spent: 10 minutes were spent reviewing previous imaging and charting. 10 minutes were spent obtaining patient history. 5 minutes were spent on physical exam. 5minutes were spent explaining diagnosis and assessment. Today's documentation was made using voice recognition software. This note may contain grammatical errors secondary to the software. [email or web address] Not available 01/28/2023 13:26:07 Plan of Treatment Reminders Order Date Submit Date Provider Last Modified By Organization Details Last Modified Time Details Appointments None record ed. Lab None record ed. Referral None record ed. Procedures None record ed. Surgeries None record ed. Imaging None record ed. Medication Orders None record ed. Patient TargetsNo targets recorded. Patient InstructionsNo instructions recorded. Reason for Referral None Reported. Problems Name Problem SNOMED Code Status Onset Date Resolution Date Notes Provider Name and Address Organization Details Recorded Time Pain of left knee joint [id number] Active 2022 PIERRE MCKEON PA-C [address] [facility],[address], [place], [address] , [place] - [facility], 13:26:21 Problem Notes None recorded. Medical Equipment None Reported. Medications Name Sig Start Date Stop Date Status Note LastModified by Organization Details LastModified Time bupivacaine HCl 0.5 % (5 mg/mL) injection solution 08/22 completed Not Available Not Available Not Available meclizine 25 mg tablet TAKE 1 TABLET BY MOUTH THREE TIMES A DAY NEEDED FOR DIZZINESS active Not Available Not Available No t Available triamcinolo ne acetonide 40 mg/mL suspension for injection 08/22 completed Not Available Not Available Not Available venlafaxine 37.5 mg tablet TAKE 1 TABLET BY MOUTH AT BEDTIME FOR 7 DAYS, THEN 2 TABLETS AT BEDTIME active Not Available Not Available No t Available hydroxyzine HCl 25 mg tablet TAKE 1 TABLET BY MOUTH EVERY DAY IN THE EVENING active Not Available Not Available No t Available ondansetron 4 mg disintegrat ing tablet TAKE 1 TABLET BY MOUTH EVERY 8 HOURS NEEDED active Not Available Not Available No t Available duloxetine 30 mg capsule,del ayed release TAKE 1 CAPSULE BY MOUTH EVERY DAY active Not Available Not Available No t Available lidocaine (PF) 20 mg/mL (2 %) injection solution 08/22 completed Not Available Not Available Not Available cholecalcif ariana (vitamin D3) 50 mcg (2,000 unit) capsule TAKE 1 CAPSULE BY MOUTH EVERY DAY active Not Available Not Available No t Available Vitals None Recorded Social History None recorded. Functional Status None recorded. Mental Status None recorded. Family History Nothing Reported. Medical History No medical history recorded. Gynecological HistoryNo gynecological history recorded. Obstetrics History GPAL:G 0 P 0 0 0 0 Past Encounters Encounter ID Performer Location Encounter Start Date Encounter Closed Date Diagnosis/Indication Diagnosis SNOMED-CT Code Diagnosis ICD10 Code Diagnosis IMO Codes Diagnosis Note [id number] ELISA JACOB [facility] [address] [facility] [address] [place] [address] 01/28/2023 12:52:10 01/28/2023 13:25:36 Pain of left knee joint [id number] 88681 M25.562 Health Concerns Section Related Observation LastModified by Organization Detai ls LastModified Time None Recorded Concern Status LastModified by Organization Details LastModified Time None Recorded Advance Directives Directive None Recorded Payers Insurance Date Sequence Insurance Name Policy Number Policy [place] Covered Member ID [place] Member ID Guarantor Name 01/28/[address] [place] [address] [id number] Dekorra Colon [id number] Dekorra Colon Notes Date Note Type Note Provider Name and Address Organization Details Recorded Time 01/28/2023 text/html 57-year-old female last seen by Dr. Avery on 08/22/2022 for possible partial knee replacement due to arthritis however at that time she was not an ideal surgical candidate due to the amount of arthritis that was present. Conservative management was the recommendation as well as cortisone injection at that visit however she did not note any significant relief from the cortisone injection. She returns and states she was diagnosed with neuropathy for which she is on Cymbalta and she does note improvement regarding her left knee pain. PIERRE MCKEON PA-C [address] [facility] [address], [place], [address], [place] - [facility], P 01/28/2023 13:26:40 OBGyn Episode No OBEpisode recorded.
[2025-04-20 09:13] LABS: Chlamydia pneumoniae PCR Not Detected (Not Detect.); Coronavirus 229E PCR Not Detected (Not Detect.); Coronavirus HKU1 PCR Not Detected (Not Detect.); Coronavirus NL63 PCR Not Detected (Not Detect.); Coronavirus OC43 PCR Not Detected (Not Detect.); RSV PCR Not Detected (Not Detect.); Rhino/Enterovirus PCR Not Detected (Not Detect.)
[2025-04-20 09:37] LABS: SARS-CoV-2 PCR Detected (Not Detect.)
[2025-04-20 09:38] LABS: Influenza A H1 PCR Not Detected (Not Detect.); Influenza A H1-2009 PCR Not Detected (Not Detect.); Influenza A H3 PCR Not Detected (Not Detect.)
== END 2025-04-19 12:47 | disposition home or self-care (01) ==
LOC: HO.LNP 12:46
PROVIDERS: Visit Provider Physician Assistant Medical
DX: J06.9 Acute upper respiratory infection, unspecified (principal); R09.89 Other specified symptoms and signs involving the circulatory and respiratory systems; R05.9 Cough, unspecified; R50.9 Fever, unspecified
CPT/HCPCS: 87633

== ENCOUNTER 2025-05-31 07:48 | Inpatient (IN) | payer OTHER, SELFPAY ==
--- NOTE | ~2025-05-31 | CT_ITS ---
EXAMINATION: CT ABDOMEN AND PELVIS WITH CONTRAST CLINICAL INFORMATION: Abdominal pain COMPARISON: None available. TECHNIQUE: Multidetector volumetric images were obtained from the superior aspect of the liver through the pubic symphysis following administration 85 mL of Omnipaque 350 intravenous contrast. Sagittal and coronal reformatted images were obtained on the technologist's workstation. Oral contrast: No This CT examination was performed using dose optimization techniques as appropriate, variously including the following: *Automated exposure control *Adjustment of mA and/or kV according to patient size (this includes techniques or standardized protocols for targeted exams where dose is matched to indication/reason for exam; i.e. extremities or head) *Use of iterative reconstruction technique FINDINGS: LUNG BASES: The visualized lung bases are unremarkable. LIVER, GALLBLADDER, AND BILIARY TREE: Diffuse fatty changes are present in the liver. The gallbladder is unremarkable with no evidence of radiopaque gallstones, gallbladder wall thickening, or obvious pericholecystic inflammatory changes. PANCREAS: Unremarkable. SPLEEN: Unremarkable. ADRENAL GLANDS: Unremarkable. KIDNEYS AND URETERS: The kidneys are normal in size, shape, and attenuation. No hydronephrosis, hydroureter, or calculi seen. No perinephric stranding. BLADDER: Unremarkable. GASTROINTESTINAL TRACT: There are dilated loops of fluid filled small bowel, mostly ileum. There is fecalization of a segment of bowel right of midline in the mid to lower abdomen where the bowel loop appears to branch off and 2 directions (coronal image 27/81) concerning for chronic fistula versus a surgical anastomosis versus diverticulum. Abdomen that branches toward the left feeds to an area of bowel wall thickening with progressive decompression of the abdomen distention. Portion of the bowel that branches toward the right possibly into the blind pouch 3.7 cm long. The colon is partially decompressed. The appendix is unremarkable. There is a small amount of free fluid. ABDOMINAL WALL: No significant hernia is appreciated. LYMPH NODES: Normal. VASCULAR: Unremarkable. PELVIC VISCERA: Uterus and ovaries are unremarkable. OSSEOUS STRUCTURES: Mild degenerative changes are present in the lower thoracic spine. Moderate degenerative changes are present in the pubic symphysis joint. There is sclerosis, degenerative cystic change, and osteophytes. Mild degenerative changes present in the SI joints, right greater than left. CT/CT abdomen pelvis w IV con IMPRESSION: Small bowel obstruction likely involving the mid to distal ileum. There is a segment of small bowel in the abdomen and upper pelvis, right of midline, that demonstrates fecalized content consistent with subacute or chronic change. This loop of bowel appears to branch into Y pattern (coronal image 27/81) likely into a blind ending pouch toward the right. This could be postsurgical, a diverticulum, or related to a fistula. The lumen branching toward the left leads to a segment of edematous thick-walled small bowel with gradual transition to decompressed small bowel. Bowel wall thickening can be related to infection, ischemia, inflammatory bowel disease, and less likely neoplasm. There is small amount of free fluid associated with the abnormality. Hepatic steatosis. Fleischner guidelines were followed. Dr. Giraldo alerted via [employer]rol[employer] at 11:43 am, message read. Electronically signed by: Antolin Carranza MD 05/31/2025 11:44 AM VEENA
[2025-05-31 07:52] VITALS: BP 126/59; BP 128/86; PULSE 71; PULSE 86; RESP 20; TEMP 36.7; O2SAT 98; BMI 31.5
--- NOTE | 2025-05-31 08:01 | ED.ABDPAIN ---
HPI - Abdominal Pain General Chief Complaint: Abdominal Pain Stated Complaint: EPIGASTRIC PAIN Time Seen by Provider: 05/31/25 07:55 Source: patient Mode of arrival: ambulatory Limitations: no limitations History of Present Illness ED Provider: HPI narrative: 59-year-old woman around midnight ate shrimp and garlic woke up that to 30 with epigastric abdominal pain, and nausea and vomiting, no chest pain or shortness of breath, no pain in the lower quadrants, no hematemesis or hematochezia, she is not on any medications for stomach protection. Related Data Previous Rx's ?Medication ?Instructions ?Recorded ibuprofen 800 mg tablet 800 mg PO Q8H #30 tabs 11/26/23 cetirizine 5 mg-pseudoephedrine ER 1 tab PO BID 7 days #14 tabs 04/19/25 120 mg tablet,extended release,12hr fluticasone propionate 50 1 spray intranasal Q12H #16 grams 04/19/25 mcg/actuation nasal spray,suspension Allergies Allergy/AdvReac Type Severity Reaction Status Date / Time No Known Allergies (No Known Allergy Verified 05/31/25 07:55 Allergies*) Review of Systems Constitutional: Reports as per [facility] Social History Social History Patient Tobacco Use Status: Never used Tobacco Smoked in Last 30 Days: No Use of substances other than those prescribed or required for medical reasons: No Advance Directives: No Advance Directives Information Provided: Yes Patient : No Physical Exam ED Exam Exam: ?General: ??looks age appropriate ?PERRLA, EOMI, MMM, Neck: Supple, no LAD ?CV: RRR, no obvious murmurs appreciated ?Resp: ?No wheezing rales rhonchi no stridor moving air well Abd: ?Bowel sounds are present, epigastric tenderness no rebound no rigidity, negative John's sign MSK: FROM, strength 5/5 all extremities Skin: Warm, dry, intact, ?Neuro: ?Alert and oriented x3, moving upper and lower extremities symmetrically, no obvious facial asymmetry noted, cranial nerves 2-12 intact Vital Signs: Vital Signs - 24 hr 05/31/25 07:52 05/31/25 11:15 05/31/25 11:24 Temperature 98.1 F 98.3 F Pulse Rate 71 81 Respiratory Rate 20 16 18 Blood Pressure 126/59 L 118/53 L Pulse Oximetry 98 96 Oxygen Delivery Method Room Air Room Air 05/31/25 11:29 Temperature Pulse Rate 82 Respiratory Rate 18 Blood Pressure 118/53 L Pulse Oximetry 95 Oxygen Delivery Method Room Air BMI result Body Mass Index 31.5 Medical Decision Making Medical Decision Making [facility] Narrative: 8:05 AM 05/31/2025 (Dr. Sandro Giraldo): Presenting with nausea vomiting and epigastric abdominal discomfort in the setting of eating shrimp and garlic before bedtime, fairly benign abdominal exam except for tenderness in the epigastric area did not feel further imaging such as CT ultrasound is indicated to evaluate for cholecystitis or SBO at this time, will medicate we will re-evaluate, we will check LFTs, disposition to be determined 9:02 AM 05/31/2025 (Dr. Sandro Giraldo): Patient initially refused GI cocktail, I have explained to patient and the family that this is my recommendation for pain, but we will continue to monitor, no indication for imaging at this time 10:06 AM 05/31/2025 (Dr. Sandro Giraldo): Re-evaluated, states still having some pain after Toradol and acetaminophen, reportedly vomited with Maalox, as she continues to have pain we will medicate with opiates and obtain CT abdomen and pelvis 11:53 AM 05/31/2025 (Dr. Sandro Giraldo): CT does show an SBO, updated family, will consult General surgery 2:24 PM 05/31/2025 (Dr. Sandro Giraldo): Admitted to surgical service Differential Diagnosis Differential Diagnoses: The differential diagnosis associated with the presentation includes (Cholecystitis, pancreatitis, hepatitis, gastritis, cholangitis, choledocholithiasis, SBO,) Admission/Observation Consideration of admission/observation: Escalation of care including admission/observation considered Consult Healthcare Provider Management of the patient was discussed with: Hide Inspector And Sorter (Dr. Cui) Lab Data [facility] Lab Attestation statement: I reviewed the patient's lab results. 05/31/25 08:04 05/31/25 08:04 Labs: Lab Results 05/31/25 Range/Units 08:04 WBC 9.7 (4.8-10.8) X10*3/uL RBC 4.29 (4.20-5.50) X10*6/uL Hgb 11.9 L (12.0-16.0) g/dl Hct 36.6 L (37.0-47.0) % MCV 85.3 (80.0-98.0) fL MCH 27.7 (27.0-33.0) pg MCHC 32.5 (31.0-35.0) g/dl RDW 13.3 (11.0-16.0) % Plt Count 190 (160-400) X10*3/uL MPV 11.0 (9.4-12.3) fL Immature Gran % (Auto) 0.3 (0.0-0.4) % Neut % (Auto) 85.4 H (45-73) % Lymph % (Auto) 10.9 L (20-40) % Phelps % (Auto) 3.1 (2-11) % Eos % (Auto) 0.1 (0-4) % Baso % (Auto) 0.2 (0-2) % Lymph # (Auto) 1.1 L (1.2-4.9) X10*3/uL Phelps # (Auto) 0.3 (0.1-1.2) X10*3/uL Eos # (Auto) 0.0 (0.0-0.4) X10*3/uL Baso # (Auto) 0.0 (0.0-0.2) X10*3/uL Abs Immat Gran (auto) 0.03 (0.00-0.03) X10*3/uL Absolute Neuts (auto) 8.3 (2.0-8.3) x10*3/uL Absolute Nucleated RBC 0.000 (0.0-0.012) X10*3/uL Nucleated RBC % (auto) 0.0 (0.0-0.2) /100WBC Sodium 139 (135-145) mmol/L Potassium 4.4 (3.3-5.1) mmol/L Chloride 103 (96-108) mmol/L Carbon Dioxide 28 (22-29) mmol/L Anion Gap 12 (12-20) BUN 20 H (9-16) mg/dL Creatinine 0.55 (0.5-1.4) mg/dL Estim Creat Clear Calc 110.8 Estimated GFR > 60 Random Glucose 198 H (60-115) mg/dL Calcium 9.5 (8.4-10.2) mg/dL Total Bilirubin 0.4 (0.0-1.0) mg/dL AST 25 (5-31) U/L ALT 29 (0-31) U/L Alkaline Phosphatase 103 (39-117) U/L Total Protein 7.6 (6.5-8.0) g/dL Albumin 4.6 (3.5-5.0) g/dL Lipase 18 (8-78) U/L Radiology Impression Discussion of test interpretation with radiology: I have reviewed the radiologist's reading. (IMPRESSION: Small bowel obstruction likely involving the mid to distal ileum. There is a segment of small bowel in the abdomen and upper pelvis, right of midline, that demonstrates fecalized content consistent with subacute or chronic change. This loop of bowel appears to branch into Y pattern ) Tests considered The following testing was considered but not selected: CT abdomen and pelvis with IV contrast Ultrasound liver Medications Administered Discontinued Medications Generic Name Dose Route Start Last Admin Trade Name Freq PRN Reason Stop Dose Admin Al Hydroxide/Mg Hydroxide 15 ml 05/31/25 08:02 05/31/25 09:02 Magnesium Hydrox/Alum Hydrox 30 Ml Oral.Susp PO 05/31/25 08:03 15 ml ONCE ONE Administration Belladonna Alkaloids/Phenobarbital 5 ml 05/31/25 11:07 05/31/25 11:25 Phenobarb/Hyoscy/Atropine/Scop 10 Ml Elixir PO 05/31/25 11:08 5 ml ONCE ONE Administration Diphenhydramine HCl 12.5 mg 05/31/25 10:05 05/31/25 11:25 Diphenhydramine Hcl 50 Mg/Ml Vial IVPUSH 05/31/25 10:06 12.5 mg ONCE ONE Administration Famotidine 20 mg 05/31/25 08:02 05/31/25 08:13 Famotidine/Pf 20 Mg/2 Ml Vial IVPUSH 05/31/25 08:03 20 mg ONCE ONE Administration Acetaminophen 1,000 mg in 100 mls @ 400 mls/hr 05/31/25 09:02 05/31/25 10:23 Ofirmev IV 05/31/25 09:16 Infused ONCE ONE Infusion Iohexol 85 ml 05/31/25 11:17 05/31/25 11:18 Iohexol 350 Mg/Ml 100 Ml Infus..Btl IV 05/31/25 11:18 85 ml ONCE ONE Administration Ketorolac Tromethamine 15 mg 05/31/25 09:02 05/31/25 09:09 Ketorolac Tromethamine 15 Mg/Ml Vial IVPUSH 05/31/25 09:03 15 mg ONCE ONE Administration Lidocaine HCl 15 ml 05/31/25 08:02 05/31/25 09:02 Lidocaine Hcl Viscous 2 % 15 Ml Solution PO 05/31/25 08:03 15 ml ONCE ONE Administration Morphine Sulfate 4 mg 05/31/25 10:05 05/31/25 11:24 Morphine Sulfate 4 Mg/Ml Cartridge IVPUSH 05/31/25 10:06 4 mg ONCE ONE Administration Protocol Morphine Sulfate 4 mg 05/31/25 12:57 05/31/25 13:03 Morphine Sulfate 4 Mg/Ml Cartridge IVPUSH 05/31/25 12:58 4 mg ONCE ONE Administration Protocol Ondansetron HCl 4 mg 05/31/25 08:02 05/31/25 08:13 Ondansetron Hcl 4 Mg/2 Ml Vial IVPUSH 05/31/25 08:03 4 mg ONCE ONE Administration Critical Care Time Critical Care Time Critical Care Time: Yes Total Critical Care Time: 60 Attestation: Time is exclusive of separately billable procedures. Time includes: direct patient care, patient reassessment, coordination of patient care, interpretation of data (laboratory data, pulse oximetry, arterial blood gases and chest xrays), review of patient's medical records, medical consultation and documentation of patient care. Procedures excluded from critical care time: central intravenous line placement and electrocardiography. Discharge Plan Discharge Clinical Impression: SBO (small bowel obstruction) Patient Disposition: Admitted As Inpatient Print Language: Turkmen
[2025-05-31 08:10] LABS: MANUAL DIFF FLAG NO
[2025-05-31 08:12] LABS: Hematocrit 36.6 % (37.0-47.0); Hemoglobin 11.9 g/dl (12.0-16.0); Imm Gran Abs Auto 0.03 X10*3/uL (0.00-0.03); Imm Gran Pct Auto 0.3 % (0.0-0.4); Lymphocytes Absolute Auto 1.1 X10*3/uL (1.2-4.9); Mean Corpuscular HGB Conc 32.5 g/dl (31.0-35.0); Mean Corpuscular Hemoglobin 27.7 pg (27.0-33.0); Mean Corpuscular Volume 85.3 fL (80.0-98.0); NRBC Abs Auto 0.000 X10*3/uL (0.0-0.012); NRBC Pct Auto 0.0 /100WBC (0.0-0.2); Platelet Count 190 X10*3/uL (160-400); Red Blood Count 4.29 X10*6/uL (4.20-5.50); White Blood Count 9.7 X10*3/uL (4.8-10.8)
[2025-05-31 08:25] LABS: Alanine Aminotransferase 29 U/L (0-31); Albumin Level 4.6 g/dL (3.5-5.0); Alkaline Phosphatase 103 U/L (39-117); Anion Gap 12 (12-20); Aspartate Amino Transferase 25 U/L (5-31); Blood Urea Nitrogen 20 mg/dL (9-16); Calcium 9.5 mg/dL (8.4-10.2); Carbon Dioxide 28 mmol/L (22-29); Chloride 103 mmol/L (96-108); Creatinine Clr Calc Pharmacy 110.8; Estimated Glomerular Filt Rate > 60; Lipase 18 U/L (8-78); Potassium 4.4 mmol/L (3.3-5.1); Sodium 139 mmol/L (135-145); Total Protein 7.6 g/dL (6.5-8.0)
--- OUTSIDE RECORDS SUMMARY | 2025-05-31 08:25 | XMS_ITS | Clinical Summary ---
Author Organization [address] [facility] Address [address] [place] [address] Phone Care Team Providers Care Newsagent Name Role Phone Shanti Lynch MD Primary [...] irritants and bladder training. Uterine leiomyoma 12/14/2015 Immunizations Immunization Administration Dates Next Due Influenza [...] Care Team (Late st Contact Info) Description 06/19/2025 3:00 PM EST Office Visit Adult Medicine [facility] - [address] [phone] Shanti Lynch MD [address] [place] [address] 10/02/2025 2:00 PM EDT Office Visit Urogynecology - [address] [phone] Maria A Payne MD [address] [facility] [address] [place] [address] Health Maintenance Due Date Last Done Comments [...] HPV 10/16/2025 10/16/2020 Breast Cancer Screening 10/17/2026 10/18/19, 12/09/2016 DTaP,Tdap,and Td Vaccines (2 - Td [...] Anatomical Region Laterality Modality Breast Bilateral Mammography us Historical Provider MD APPLE BI PROCEDURES Final R esult * (ABNORMAL) Lipid panel (04/15/2024) LDL/HDL Ratio 3 0 - 4 Triglycerides 57 0 - 150 mg/dL Cholesterol 251(A) 0 - 200 mg/dL HDL 99 >=40 mg/dL LDL Cholesterol 141(A) 0 - 100 mg/dL Blood Venous blood specimen / Unknown Historical Provider LAB BLOOD ORDERABLES Michaela l Result * Cervical Cancer Screening: HPV (10/16/2020) Pathologist [facility] Cervical Cancer Screening: HPV negative, abstracted Historical Provider HEALTH MAINTENANCE Final Result * HIV Screening (06/10/2017) [facility] HIV Screening abstracted Historical Provider HEALTH MAINTENANCE Final Result * Hepatitis C Screening (10/15/2011) [facility] Hepatitis C Screening abstracted [facility] Provider HEALTH MAINTENANCE Final Result from Last 3 Months or Most Recently Relevant to Health Maintenance Insurance [facility] Care Teams Newsagent Relationship Specialty Start Date End Date Shanti Lynch MD [address] [place] [address] PCP - General Internal Medicine 03/03/22
--- OUTSIDE RECORDS SUMMARY | 2025-05-31 08:25 | XMS_ITS | Clinical Summary ---
Author Organization [facility] Address [address] [place] [address] Care Team Providers Care Snow Plow Tractor Operator Name Role Phone Unavailable Primary Care Provider [...]
--- OUTSIDE RECORDS SUMMARY | 2025-05-31 08:25 | XMS_ITS | Data Portability ---
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 I had discussion regarding treatment options which included [id number] pain med occasions such as topical and [...] Recorded Time Pain of left knee joint [id number] Active 2022 PIERRE MCKEON PA-C [address] [facility], [place], [address] , [place] [facility] [place], 13:26:21 Problem Notes None recorded. Medical Equipment [...] ICD10 Code Diagnosis IMO Codes Diagnosis Note [id number] [facility] [address] [facility] [address] [place] [address] 01/28/2023 12:52:10 01/28/2023 13:25:36 Pain of left knee joint [id number] M25.562 Health Concerns Section Related Observation LastModified by Organization Detai ls LastModified Time None Recorded Concern Status LastModified by Organization Details LastModified Time None Recorded Advance Directives Directive None Recorded Payers Insurance Date Sequence Insurance Name Policy Number Policy [place] Covered Member ID [place] Member ID Guarantor Name 01/28/[address] [place] [address] [id number] [place] [employer] [id number] [place] [employer] Notes Date Note Type Note Provider [...] left knee pain. PIERRE MCKEON PA-C [address] [facility] [address], [place], [address], [place] [facility] [place], P 01/28/2023 13:26:40 OBGyn Episode No OBEpisode recorded.
--- OUTSIDE RECORDS SUMMARY | 2025-05-31 08:25 | XMS_ITS | Clinical Summary ---
Author Organization [facility] Address [address] [address] Phone Care Team Providers Care Consulting Database Administrator Name Role Phone Shanti Lynch MD Primary [...] Medical Devices Not on file Insurance [facility] H[facility] Care Teams Consulting Database Administrator Relationship Specialty Start Date End Date Shanti Lynch MD PCP - General Family Medicine 04/12/23 Additional Source Comments The information contained in this document represents components of the legal health record. It is not the complete legal health record.[facility]
--- OUTSIDE RECORDS SUMMARY | 2025-05-31 08:25 | XMS_ITS | Encounter Summary ---
Author Organization [facility] Address [address] [place] [address] Phone Care Team Providers Care Furnace Combination Analyst Name Role Phone Pcp, Unknown Primary Care Provider Shanti Kwan MD Primary Care Pr ovider Encounter Details Date Type Department Care Team (Late st Contact Info) Description 08/03/2022 Procedure Pass [facility], [facility] Scan - [address] [address] Social History Tobacco Use Types Packs/Day Years [...] 08/03/2022 1:13 PM Deisy Lira, RN * [place] Suicide Severity Rating Scale (Screener/Recent Self-Report) Question [...] on filedocumented in this encounter Care Teams Furnace Combination Analyst Relationship Specialty Start Date End Date Pcp, Unknown PCP - General 08/03/22 04/11/23 Shanti Lynch MD PCP - General Family Medicine 04/12/23 documented as of this encounter Additional Source Comments The information contained in this document represents components of the legal health record. It is not the complete legal health record.[facility]
--- NOTE | 2025-05-31 08:26 | PC.NURSE ---
Patient presented to ED via EMS for 10/ abdominal pain associated with vomiting that woke her up at 0200. Patient denies any blood in emesis. Abdominal pain is centralized. Abdomen is soft and tender. Patient denies any alcohol or dug use. VSS. IV inserted and labs drawn.
[2025-05-31] MEDS: Magnesium Hydrox/Alum Hydrox 30 ML ORAL.SUSP 15 ML PO (09:02)
[2025-05-31] MEDS: Lidocaine HCl Viscous 2 % 15 ML SOLUTION PO (09:02)
[2025-05-31 11:15] VITALS: BP 118/53; PULSE 81; RESP 16; TEMP 36.8; O2SAT 96
[2025-05-31] MEDS: iohexoL 350 MG/ML 100 ML INFUS..BTL 85 ML IV (11:18)
[2025-05-31 11:24] VITALS: RESP 18
[2025-05-31] MEDS: PHENobarb/Hyoscy/Atropine/Scop 10 ML ELIXIR 5 ML PO (11:25)
[2025-05-31 11:29] VITALS: BP 118/53; PULSE 82; RESP 18; O2SAT 95
--- NOTE | 2025-05-31 14:33 | P.HPGS_ITS ---
History of Present Illness History of Present Illness Date of Service: 05/31/25 Chief complaint: partial small bowel obstruction Narrative: Olya Haq is a 59 year old female presenting with complaints of pain in the epigastric region associated with nausea and vomiting. The pain woke her up from sleep at around 02:30 and she denies any previous illness prior to this. She did report eating shrimp with garlic the previous evening prior to onset of abdominal pain. She denies any previous episode of similar symptoms. She denies any previous abdominal surgeries. After the vomiting and abdominal pain she presented to the emergency department for further evaluation. Initial wor kup in the emergency department revealed normal WBC. CT abdomen and pelvis revealed dilated loops of small bowel with a transition point and a possible diverticulum. Findings were suggestive of small-bowel obstruction. Patient did report a previous colonoscopy approximately 9 years ago. Review of Systems Review of Systems: Yes all other systems are reviewed and are [facility] Social History Social History Patient Tobacco Use Status: Never used Tobacco Smoked in Last 30 Days: No Use of substances other than those prescribed or required for medical reasons: No Advance Directives: No Advance Directives Information Provided: Yes Patient : No Meds Allergies Allergy/AdvReac Type Severity Reaction Status Date / Time No Known Allergies (No Known Allergy Verified 05/31/25 07:55 Allergies*) Active Medications: Current Medications Hydromorphone HCl (Hydromorphone Hcl 0.5 Mg/0.5 Ml Syringe) 0.5 mg IVPUSH Q3H PRN; Protocol PRN Reason: Pain, Severe (Pain Scale 7-10) Acetaminophen (Ofirmev) 1,000 mg in 100 mls @ 400 mls/hr IV Q6H PRN PRN Reason: Pain, Mild (Pain Scale 1-3) Dextrose/Lactated Ringer's (D5lr) 1,000 mls @ 125 mls/hr IVCONT .Q8H GEMINI Ondansetron HCl (Ondansetron Hcl 4 Mg/2 Ml Vial) 4 mg IVPUSH QID PRN PRN Reason: Nausea Oxycodone HCl (Oxycodone Hcl Immed Release 5 Mg Tablet) 5 mg PO Q6H PRN PRN Reason: Pain, Moderate(Pain Scale 4-6) Zolpidem Tartrate (Zolpidem Tartrate 5 Mg Tablet) 5 mg PO BEDTIME PRN PRN Reason: Insomnia Home Medications ?Medication ?Instructions ?Recorded ?Confirmed ?Last Taken ?Type estradiol 0.01% (0.1 mg/gram) 1 g vaginal 2XW 05/31/25 Unknown History vaginal cream Physical Exam Vital Signs: Vital Signs: Last Vital Signs Temp 98.3 F 05/31/25 11:15 Pulse 82 05/31/25 11:29 Resp 18 05/31/25 11:29 BP 118/53 L 05/31/25 11:29 Pulse Ox 95 05/31/25 11:29 O2 Del Method Room Air 05/31/25 11:29 BMI result Body Mass Index 31.5 Const: General: cooperative and no acute distress Nutritional Appearance: well nourished Orientation/consciousness: patient oriented x3 Limitations: no limitations HEENT: Head: Yes normocephalic and Yes atraumatic Ears: hearing grossly normal bilaterally Resp: Effort & Inspection: normal respiratory effort, no audible wheezes, no cough and no respiratory distress Cardio: Jugular venous distension: no JVD GI: Other: Soft, minimally distended, mildly tender, no peritoneal signs. No abdominal scars or hernias appreciated. Tympany to percussion. Inspection: Yes normal to inspection Rectal Exam - Female: deferred Skin: Other: Warm, dry, no rash Neuro: General: patient oriented x3 Extrem: General: Yes no clubbing, cyanosis or edema Results Results Labs: Short CBC 05/31/25 Range/Units 08:04 WBC 9.7 (4.8-10.8) X10*3/uL Hgb 11.9 L (12.0-16.0) g/dl Hct 36.6 L (37.0-47.0) % Plt Count 190 (160-400) X10*3/uL BMP 05/31/25 08:04 Sodium 139 Potassium 4.4 Chloride 103 Carbon Dioxide 28 BUN 20 H Creatinine 0.55 Calcium 9.5 Liver Function 05/31/25 Range/Units 08:04 Total Bilirubin 0.4 (0.0-1.0) mg/dL AST 25 (5-31) U/L ALT 29 (0-31) U/L Alkaline Phosphatase 103 (39-117) U/L Albumin 4.6 (3.5-5.0) g/dL Assessment and Plan (1) SBO (small bowel obstruction): Status: Acute Plan 59-year-old female patient presenting with complaints of abdominal pain, nausea and vomiting soon after eating shrimp the night before. Patient presented to the emergency department due to the persistent nausea and vomiting. Workup revealed normal WBC however CT abdomen and pelvis was suggestive of a small-bowel obstruction. I reviewed the options in detail with the patient and her family. I recommended admission for IV hydration and observation. I will hold off on nasogastric tube decompression unless she continues to have nausea and vomiting. If there is no improvement over the next several days she may require a small-bowel series. Quality Stroke Does the patient have a stroke diagnosis?: No VTE Prior VTE?: No VTE Risk Level:: Surgical - low VTE Device Contraindication: N/A - Device Ordered VTE Drug Contraindication: Treatment Not Indicated Procedures Date of Service Date of Service: 05/31/25
[2025-05-31 14:45] VITALS: BP 110/55; PULSE 93; RESP 16; TEMP 36.6; O2SAT 92
[2025-05-31] MEDS: Dextrose 5 % and Lactated Ring 1,000 ML 125 ML IVCONT ×2 (14:47→22:11)
--- NOTE | 2025-05-31 14:53 | PHA.MEDREC ---
Addendum entered by Carmine Matthews PharmD 05/31/25 14:59: reviewed Original Note: Pharmacy Consult ? Medication Reconciliation Pharmacy has completed the medication reconciliation. Spoke with pt and family at bedside; pt and family confirmed pt not taking Estradiol cream anymore and is only taking Vitamin D3 once daily but doesn't remember the dose.
--- NOTE | 2025-05-31 15:26 | PC.NURSE ---
Patient admitted for nausea, vomiting and abdominal pain awoken at 0230 from it. Patient states 10 pain in center of abdomen. Denying any blood in emesis. Patient states had bowel movement 05/31, has not passed any gas today. 20g placed in left AC. CT scan showing SBO. Pain management from IV Dilaudid and morphine. Patient placed on 2 liters NC after administration of pain medication while sleeping for o2 sat of 88%. Zofran given with good effect. Patient has not had episode of emesis since admit. Patient alert and oriented x4. Patient up independently to bathroom. Family at bedside present.
[2025-05-31 16:16] VITALS: BMI 29.6
[2025-05-31] MEDS: oxyCODONE HCl Immed Release 5 MG TABLET PO (17:55)
[2025-05-31 19:29] VITALS: BP 120/55; PULSE 99; RESP 19; TEMP 36.4; O2SAT 97
[2025-06-01 03:24] VITALS: BP 107/56; PULSE 90; RESP 16; TEMP 36.5; O2SAT 95
[2025-06-01] MEDS: Dextrose 5 % and Lactated Ring 1,000 ML 125 ML IVCONT ×2 (05:28→14:19)
[2025-06-01 06:56] LABS: MANUAL DIFF FLAG NO
[2025-06-01 07:17] LABS: Hematocrit 32.5 % (37.0-47.0); Hemoglobin 10.4 g/dl (12.0-16.0); Imm Gran Abs Auto 0.00 X10*3/uL (0.00-0.03); Imm Gran Pct Auto 0.0 % (0.0-0.4); Lymphocytes Absolute Auto 1.1 X10*3/uL (1.2-4.9); Mean Corpuscular HGB Conc 32.0 g/dl (31.0-35.0); Mean Corpuscular Hemoglobin 27.7 pg (27.0-33.0); Mean Corpuscular Volume 86.7 fL (80.0-98.0); NRBC Abs Auto 0.000 X10*3/uL (0.0-0.012); NRBC Pct Auto 0.0 /100WBC (0.0-0.2); Platelet Count 167 X10*3/uL (160-400); Red Blood Count 3.75 X10*6/uL (4.20-5.50); White Blood Count 6.3 X10*3/uL (4.8-10.8)
[2025-06-01 07:24] LABS: Anion Gap 11 (12-20); Blood Urea Nitrogen 17 mg/dL (9-16); Carbon Dioxide 28 mmol/L (22-29); Chloride 105 mmol/L (96-108); Creatinine Clr Calc Pharmacy 125.7; Estimated Glomerular Filt Rate > 60; Potassium 4.1 mmol/L (3.3-5.1); Sodium 140 mmol/L (135-145)
[2025-06-01 07:40] LABS: Calcium 8.6 mg/dL (8.4-10.2)
[2025-06-01 08:00] VITALS: BP 116/61; PULSE 84; RESP 18; TEMP 36.8; O2SAT 93
--- NOTE | 2025-06-01 09:38 | PM.PNGS ---
Subjective Subjective Date of Service: 06/01/25 Interval history: Patient feels much improved this morning with no further abdominal pain, nausea or vomiting. Has not moved her bowels since being admitted. Physical Exam Vital Signs: Vital Signs: Last Vital Signs Temp 98.3 F 06/01/25 08:00 Pulse 84 06/01/25 08:00 Resp 18 06/01/25 08:00 BP 116/61 06/01/25 08:00 Pulse Ox 93 06/01/25 08:00 O2 Del Method Room Air 06/01/25 08:00 BMI result Body Mass Index 29.6 Const: General: comfortable Nutritional Appearance: well nourished Orientation/consciousness: patient oriented x3 Limitations: no limitations Resp: Effort & Inspection: normal respiratory effort GI: Inspection: No distended Palpation (GI): Soft to palpation, nontender, no guarding and No hepatosplenomegaly present Percussion: Yes normal to percussion Auscultation: normal bowel sounds Rectal Exam - Female: deferred Skin: General skin exam: no rashes or lesions noted Neuro: General: patient oriented x3 Extrem: General: Yes no clubbing, cyanosis or edema Objective Data Active Medications Calcium Carbonate (Calcium Carbonate 750 Mg Tab.Chew) 750 mg PO Q4H PRN PRN Reason: Heartburn Hydromorphone HCl (Hydromorphone Hcl 0.5 Mg/0.5 Ml Syringe) 0.5 mg IVPUSH Q3H PRN; Protocol PRN Reason: Pain, Severe (Pain Scale 7-10) Last Admin: 05/31/25 16:43 Dose: 0.5 mg Documented By: GIA Acetaminophen (Ofirmev) 1,000 mg in 100 mls @ 400 mls/hr IV Q6H PRN PRN Reason: Pain, Mild (Pain Scale 1-3) Last Infusion: 05/31/25 18:19 Dose: Infused Documented By: YASMIN Dextrose/Lactated Ringer's (D5lr) 1,000 mls @ 125 mls/hr IVCONT .Q8H GEMINI Last Admin: 06/01/25 05:28 Dose: 125 mls/hr Documented By: AUDRA Magnesium Hydroxide (Milk Of Magnesia 30 Ml Oral.Susp) 30 ml PO DAILY PRN PRN Reason: Constipation Ondansetron HCl (Ondansetron Hcl 4 Mg/2 Ml Vial) 4 mg IVPUSH QID PRN PRN Reason: Nausea Last Admin: 05/31/25 18:04 Dose: 4 mg Documented By: GIA Oxycodone HCl (Oxycodone Hcl Immed Release 5 Mg Tablet) 5 mg PO Q6H PRN PRN Reason: Pain, Moderate(Pain Scale 4-6) Last Admin: 05/31/25 17:55 Dose: 5 mg Documented By: GIA Sodium Chloride (0.9 % Sodium Chloride Flush 3 Ml Syringe) [facility] Last Admin: 06/01/25 07:14 Dose: Not Given Documented By: LUZ MARINA Non-Admin Reason: IV Running Zolpidem Tartrate (Zolpidem Tartrate 5 Mg Tablet) 5 mg PO BEDTIME PRN PRN Reason: Insomnia Labs 06/01/25 05:43 06/01/25 05:43 Labs: Laboratory Results - last 24 hr 06/01/25 05:43 MCV 86.7 MCH 27.7 MCHC 32.0 RDW 13.7 Plt Count 167 MPV 12.1 Immature Gran % (Auto) 0.0 Neut % (Auto) 74.0 H Lymph % (Auto) 16.7 L [place] % (Auto) 7.7 Eos % (Auto) 1.3 Baso % (Auto) 0.3 Lymph # (Auto) 1.1 L [place] # (Auto) 0.5 Eos # (Auto) 0.1 Baso # (Auto) 0.0 Abs Immat Gran (auto) 0.00 Absolute Neuts (auto) 4.7 Absolute Nucleated RBC 0.000 Nucleated RBC % (auto) 0.0 Anion Gap 11 L Estim Creat Clear Calc 125.7 Estimated GFR > 60 Random Glucose 127 H Calcium 8.6 D Procedures Date of Service Date of Service: 06/01/25 Progress Note: A&P Assessment and plan (1) SBO (small bowel obstruction): Status: Acute Plan 59-year-old female patient admitted for complaints of diffuse abdominal pain nausea and vomiting thought to possibly have small-bowel obstruction versus severe gastroenteritis after eating shrimp. This morning she is much improved with no further abdominal pain or nausea. I will start her on a clear liquid diet and advance her slowly as tolerated. Patient expressed understanding and agrees with the plan. Time Spent With Patient Time: Total time managing care of this patient today ____ minutes. Quality Stroke Does the patient have a stroke diagnosis?: No VTE Prior VTE?: No VTE Risk Level:: Surgical - low VTE Device Contraindication: N/A - Device Ordered VTE Drug Contraindication: Treatment Not Indicated
--- NOTE | 2025-06-01 11:46 | MHC.CM.PN ---
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
[2025-06-01] MEDS: 0.9 % Sodium Chloride Flush 3 ML SYRINGE IVFLUSH ×2 (14:19→21:54)
[2025-06-01] MEDS: Butalb/Acetamin/Caff 50/325/40 TABLET 1 TAB PO (15:08)
[2025-06-01 15:15] VITALS: BP 131/63; PULSE 77; RESP 18; TEMP 36.9; O2SAT 97
[2025-06-01 19:16] VITALS: BP 115/55; PULSE 78; RESP 18; TEMP 36.4; O2SAT 95
[2025-06-02 03:29] VITALS: BP 107/57; PULSE 88; RESP 18; TEMP 36.3; O2SAT 94
[2025-06-02 03:37] VITALS: BP 120/67; PULSE 72; RESP 18; TEMP 36.6; O2SAT 94
[2025-06-02] MEDS: oxyCODONE HCl Immed Release 5 MG TABLET PO (07:33)
[2025-06-02 08:00] VITALS: BP 121/66; PULSE 97; RESP 16; TEMP 36.6; O2SAT 95
--- NOTE | 2025-06-02 09:29 | PM.PNGS ---
Subjective Subjective Date of Service: 06/03/25 Interval history: Denies significant abdominal pain this morning Says she feels much improved No fever No diarrhea No nausea or vomiting Physical Exam Vital Signs: Vital Signs: Last Vital Signs Temp 97.8 F 06/02/25 08:00 Pulse 97 06/02/25 08:00 Resp 16 06/02/25 08:00 BP 121/66 06/02/25 08:00 Pulse Ox 95 06/02/25 08:00 O2 Del Method Room Air 06/02/25 08:00 BMI result Body Mass Index 29.6 Const: General: comfortable and no acute distress Resp: Effort & Inspection: normal respiratory effort Cardio: Rate: regular rate GI: Palpation (GI): Soft to palpation, not firm, nontender and no guarding Objective Data Active Medications Acetaminophen/Butalbital/Caffeine (Butalb/Acetamin/Caff 50/325/40 Tablet) 1 tab PO Q4H PRN PRN Reason: Headache Last Admin: 06/01/25 15:08 Dose: 1 tab Documented By: LUZ MARINA Calcium Carbonate (Calcium Carbonate 750 Mg Tab.Chew) 750 mg PO Q4H PRN PRN Reason: Heartburn Hydromorphone HCl (Hydromorphone Hcl 0.5 Mg/0.5 Ml Syringe) 0.5 mg IVPUSH Q3H PRN; Protocol PRN Reason: Pain, Severe (Pain Scale 7-10) Last Admin: 06/01/25 21:54 Dose: 0.5 mg Documented By: MELANY Magnesium Hydroxide (Milk Of Magnesia 30 Ml Oral.Susp) 30 ml PO DAILY PRN PRN Reason: Constipation Ondansetron HCl (Ondansetron Hcl 4 Mg/2 Ml Vial) 4 mg IVPUSH QID PRN PRN Reason: Nausea Last Admin: 06/01/25 12:47 Dose: 4 mg Documented By: LUZ MARINA Oxycodone HCl (Oxycodone Hcl Immed Release 5 Mg Tablet) 5 mg PO Q6H PRN PRN Reason: Pain, Moderate(Pain Scale 4-6) Last Admin: 06/02/25 07:33 Dose: 5 mg Documented By: ULISES Sodium Chloride (0.9 % Sodium Chloride Flush 3 Ml Syringe) 3 ml IVFLUSH [facility] Last Admin: 06/02/25 07:33 Dose: Not Given Documented By: ULISES Non-Admin Reason: Previously Administered Zolpidem Tartrate (Zolpidem Tartrate 5 Mg Tablet) 5 mg PO BEDTIME PRN PRN Reason: Insomnia Last Admin: 06/01/25 21:54 Dose: 5 mg Documented By: MELANY Labs 06/01/25 05:43 06/01/25 05:43 Procedures Date of Service Date of Service: 06/03/25 Progress Note: A&P Assessment and plan (1) SBO (small bowel obstruction): Status: Acute Plan Feels well Passing flatus Abdominal pain seems to have improved markedly No fever Abdomen is soft, benign and nontender Diet to be advanced Overall clinical findings suggest more of an enteritis Clinically well Time Spent With Patient Time: Total time managing care of this patient today ____ minutes. Quality Stroke Does the patient have a stroke diagnosis?: No VTE Prior VTE?: No VTE Risk Level:: Surgical - low VTE Device Contraindication: N/A - Device Ordered VTE Drug Contraindication: Treatment Not Indicated
[2025-06-02] MEDS: Butalb/Acetamin/Caff 50/325/40 TABLET 1 TAB PO (13:32)
[2025-06-02 15:32] VITALS: BP 131/64; PULSE 92; RESP 18; TEMP 36.3; O2SAT 96
--- NOTE | 2025-06-02 16:21 | MHC.CM.PN ---
PT NOT YET MEDICALLY CLEARED, PER MD NOTE, PT REPORTING IMPROVEMENT CM FOLLOWING FOR DC NEEDS
[2025-06-02] MEDS: 0.9 % Sodium Chloride Flush 3 ML SYRINGE IVFLUSH ×2 (16:27→21:42)
[2025-06-02 19:32] VITALS: BP 115/60; PULSE 79; RESP 18; TEMP 36.5; O2SAT 96
--- NOTE | 2025-06-02 22:29 | PC.NURSE ---
pt c/o insomnia, pt refusing prn ambien, pt asking for benadrly for sleep. CHASE tellez notified. new order prn melatonin. will cont to monitor
[2025-06-03] MEDS: 0.9 % Sodium Chloride Flush 3 ML SYRINGE IVFLUSH (07:37)
[2025-06-03 08:37] VITALS: BP 133/75; PULSE 68; RESP 18; TEMP 36.1; O2SAT 96
--- NOTE | 2025-06-03 10:03 | P.PNGS_ITS ---
Subjective Subjective Date of Service: 06/03/25 Interval history: Continues to feel well overall Denies significant pain Tolerating regular diet Passing flatus No fever Physical Exam 2 Vital Signs: Vital Signs: Last Vital Signs Temp 97.0 F 06/03/25 08:37 Pulse 68 06/03/25 08:37 Resp 18 06/03/25 08:37 BP 133/75 06/03/25 08:37 Pulse Ox 96 06/03/25 08:37 O2 Del Method Room Air 06/03/25 08:37 BMI result Body Mass Index 29.6 Const: General: comfortable and no acute distress Resp: Effort & Inspection: normal respiratory effort Cardio: Rate: regular rate GI: Palpation (GI): Soft to palpation, not firm, nontender and no guarding Objective Data Active Medications Acetaminophen/Butalbital/Caffeine (Butalb/Acetamin/Caff 50/325/40 Tablet) 1 tab PO Q4H PRN PRN Reason: Headache Last Admin: 06/02/25 13:32 Dose: 1 tab Documented By: ULISES Calcium Carbonate (Calcium Carbonate 750 Mg Tab.Chew) 750 mg PO Q4H PRN PRN Reason: Heartburn Hydromorphone HCl (Hydromorphone Hcl 0.5 Mg/0.5 Ml Syringe) 0.5 mg IVPUSH Q3H PRN; Protocol PRN Reason: Pain, Severe (Pain Scale 7-10) Last Admin: 06/02/25 18:08 Dose: 0.5 mg Documented By: NICK Magnesium Hydroxide (Milk Of Magnesia 30 Ml Oral.Susp) 30 ml PO DAILY PRN PRN Reason: Constipation Melatonin (Melatonin 3 Mg Tablet) 6 mg PO BEDTIME PRN PRN Reason: Insomnia Last Admin: 06/02/25 22:25 Dose: 6 mg Documented By: AUDRA Ondansetron HCl (Ondansetron Hcl 4 Mg/2 Ml Vial) 4 mg IVPUSH QID PRN PRN Reason: Nausea Last Admin: 06/01/25 12:47 Dose: 4 mg Documented By: LUZ MARINA Oxycodone HCl (Oxycodone Hcl Immed Release 5 Mg Tablet) 5 mg PO Q6H PRN PRN Reason: Pain, Moderate(Pain Scale 4-6) Last Admin: 06/02/25 07:33 Dose: 5 mg Documented By: ULISES Sodium Chloride (0.9 % Sodium Chloride Flush 3 Ml Syringe) 3 ml IVFLUSH QSHIFT [facility] Last Admin: 06/03/25 07:37 Dose: 3 ml Documented By: JENNYFER Zolpidem Tartrate (Zolpidem Tartrate 5 Mg Tablet) 5 mg PO BEDTIME PRN PRN Reason: Insomnia Last Admin: 06/01/25 21:54 Dose: 5 mg Documented By: JOEYK Labs 06/01/25 05:43 06/01/25 05:43 Procedures Date of Service Date of Service: 06/03/25 Progress Note: A&P Assessment and plan (1) SBO (small bowel obstruction): Status: Acute Assessment and Plan: Symptoms have resolved She is tolerating regular diet well Passing flatus Abdomen is soft, benign, nontender She looks well clinically and has been ambulating Likely had some enteritis Plan to DC home later on today Time Spent With Patient Time: Total time managing care of this patient today ____ minutes. Quality Stroke Does the patient have a stroke diagnosis?: No VTE Prior VTE?: No VTE Risk Level:: Surgical - low VTE Device Contraindication: N/A - Device Ordered VTE Drug Contraindication: Treatment Not Indicated
--- NOTE | 2025-06-03 13:26 | PM.EVENT ---
Event Note Date of Service: 06/03/25 Event Note: Seen on early afternoon rounds she says she had some pain after regular food for lunch Continues to pass flatus Abdomen remained soft and benign We will put back on clear liquids in view of her episode of pain after eating Restart some IV fluid Plan to retry regular food again tomorrow Family at bedside Time Spent With Patient Time: Total time managing care of this patient today ____ minutes.
[2025-06-03] MEDS: Lactated Ringers 1,000 ML 80 ML IVCONT ×2 (13:47→23:30)
[2025-06-03 15:48] VITALS: BP 131/59; PULSE 79; TEMP 36.1; O2SAT 97
--- NOTE | 2025-06-03 16:12 | PC.NURSE ---
Pt independent in room. Pt encouraged to ambulate in [place]. C/o abdominal tenderness after eating but denies nausea. Dr Mayberry in to see pt, IVF started and pt placed back on clear liquid diet. States is passing flatus but no BM.
--- NOTE | 2025-06-03 18:39 | PC.NURSE ---
Pt c/o abdominal pain after eating clear liquids. Medicated with IV Dialudid per JIHAN
[2025-06-03 19:28] VITALS: BP 113/55; PULSE 79; RESP 16; TEMP 36.5; O2SAT 96
--- NOTE | 2025-06-04 07:33 | PC.NURSE ---
Pt denies pain, n/v. States last BM was yesterday and is passing flatus. Tolerating clear liquids. Stated she ambulated small distance in room. Encouraged to ambulate in hallway
[2025-06-04 08:09] VITALS: BP 132/61; PULSE 71; RESP 15; TEMP 36.7; O2SAT 96
--- NOTE | 2025-06-04 09:44 | P.PNGS_ITS ---
Subjective Subjective Date of Service: 06/04/25 Interval history: Denies pain this morning Says she had a good night Had good BMs and flatus No nausea or vomiting Physical Exam 2 Vital Signs: Vital Signs: Last Vital Signs Temp 98.1 F 06/04/25 08:09 Pulse 71 06/04/25 08:09 Resp 15 06/04/25 08:09 BP 132/61 06/04/25 08:09 Pulse Ox 96 06/04/25 08:09 O2 Del Method Room Air 06/04/25 08:09 BMI result Body Mass Index 29.6 Const: General: comfortable and no acute distress Resp: Effort & Inspection: normal respiratory effort Cardio: Rate: regular rate GI: Palpation (GI): Soft to palpation, not firm, nontender and no guarding Objective Data Active Medications Acetaminophen/Butalbital/Caffeine (Butalb/Acetamin/Caff 50/325/40 Tablet) 1 tab PO Q4H PRN PRN Reason: Headache Last Admin: 06/02/25 13:32 Dose: 1 tab Documented By: ULISES Calcium Carbonate (Calcium Carbonate 750 Mg Tab.Chew) 750 mg PO Q4H PRN PRN Reason: Heartburn Hydromorphone HCl (Hydromorphone Hcl 0.5 Mg/0.5 Ml Syringe) 0.5 mg IVPUSH Q3H PRN; Protocol PRN Reason: Pain, Severe (Pain Scale 7-10) Last Admin: 06/03/25 18:21 Dose: 0.5 mg Documented By: JENNYFER Lactated Ringer's (Lr) 1,000 mls @ 80 mls/hr IVCONT .[id number] GEMINI Last Admin: 06/03/25 23:30 Dose: 80 mls/hr Documented By: AUDRA Magnesium Hydroxide (Milk Of Magnesia 30 Ml Oral.Susp) 30 ml PO DAILY PRN PRN Reason: Constipation Melatonin (Melatonin 3 Mg Tablet) 6 mg PO BEDTIME PRN PRN Reason: Insomnia Last Admin: 06/02/25 22:25 Dose: 6 mg Documented By: AUDRA Ondansetron HCl (Ondansetron Hcl 4 Mg/2 Ml Vial) 4 mg IVPUSH QID PRN PRN Reason: Nausea Last Admin: 06/01/25 12:47 Dose: 4 mg Documented By: LUZ MARINA Oxycodone HCl (Oxycodone Hcl Immed Release 5 Mg Tablet) 5 mg PO Q6H PRN PRN Reason: Pain, Moderate(Pain Scale 4-6) Last Admin: 06/02/25 07:33 Dose: 5 mg Documented By: ULISES Sodium Chloride (0.9 % Sodium Chloride Flush 3 Ml Syringe) [facility] Last Admin: 06/04/25 07:02 Dose: Not Given Documented By: JENNYFER Non-Admin Reason: IV Running Zolpidem Tartrate (Zolpidem Tartrate 5 Mg Tablet) 5 mg PO BEDTIME PRN PRN Reason: Insomnia Last Admin: 06/01/25 21:54 Dose: 5 mg Documented By: TAMMYNEK Labs 06/01/25 05:43 06/01/25 05:43 Procedures Date of Service Date of Service: 06/04/25 Progress Note: A&P Assessment and plan (1) Nausea: Status: Acute Assessment and Plan: No abdominal pain Passing good flatus and BMs Nontender on exam Abdomen very soft and benign Okay to retry on regular diet No nausea or vomiting Looks well overall Time Spent With Patient Time: Total time managing care of this patient today ____ minutes. Quality Stroke Does the patient have a stroke diagnosis?: No VTE Prior VTE?: No VTE Risk Level:: Surgical - low VTE Device Contraindication: N/A - Device Ordered VTE Drug Contraindication: Treatment Not Indicated
[2025-06-04] MEDS: Butalb/Acetamin/Caff 50/325/40 TABLET 1 TAB PO (11:43)
--- NOTE | 2025-06-04 13:27 | PM.EVENT ---
Event Note Date of Service: 06/04/25 Event Note: Seen on early afternoon rounds Says she has been tolerating regular diet today Denies any abdominal pain No nausea or vomiting Abdomen is soft, benign, nontender Passing flatus and BMs She says she is ready to be discharged I explained to her that there is always a possibility of recurrent symptoms and she understands Clinically not obstructed Plan to DC home and instructed on small frequent meals Family at bedside Time Spent With Patient Time: Total time managing care of this patient today ____ minutes.
[2025-06-04 13:45] VITALS: BP 124/76; PULSE 69; RESP 14; TEMP 36.4; O2SAT 96
--- NOTE | 2025-06-04 14:10 | MHC.CM.PN ---
PT CLEARED TO DC HOME TODAY WITH NO SERVICES FAMILY TO TRANSPORT
--- NOTE | 2025-06-04 16:16 | PM.DS ---
DS: Providers Provider Date of Service: 06/04/25 Date of admission: 05/31/25 14:34 Date of discharge: 06/04/25 Primary care physician: Shanti Lynch MD Attending physician on admission: Norman Dominique Attending physician on discharge: Kahlil Mayberry DS: Diagnosis Discharge Diagnosis (1) Nausea: Status: Acute DS: Summary Hospital Course Hospital Course: HPI AT ADMISSION: Olya Haq is a 59 year old female presenting with complaints of pain in the epigastric region associated with nausea and vomiting. The pain woke her up from sleep at around 02:30 and she denies any previous illness prior to this. She did report eating shrimp with garlic the previous evening prior to onset of abdominal pain. She denies any previous episode of similar symptoms. She denies any previous abdominal surgeries. After the vomiting and abdominal pain she presented to the emergency department for further evaluation. Initial workup in the emergency department revealed normal WBC. CT abdomen and pelvis revealed dilated loops of small bowel with a transition point and a possible diverticulum. Findings were suggestive of small-bowel obstruction. Patient did report a previous colonoscopy approximately 9 years ago. HOSPITAL COURSE: Patient was admitted to the surgical service for further treatment of the SBO. It was recommended to continue IV hydration and observation. Nasogastric tube decompression was held. She had rapid improvement in her symptoms and picture was felt to more suggestive of enteritis. Her diet was advanced as tolerated. On the day of discharge, she was tolerating a solid diet without any abdominal symptoms. She had good GI function. Her abdomen was benign and soft, NTND. She was hemodynamically stable. She felt ready for discharge. She was discharged to home on 06/04/25 in stable condition. She is to f/u with her PCP. Status at Discharge Overall status at discharge: patient is back to baseline Time Attestation Discharge Coordination Time (in mins): 25 Quality: Safe Use of Opioids Does Pt have an Active Cancer Diagnosis on the Problem List?: No Quality: Stroke Does the patient have a stroke diagnosis?: No Physical Exam Vital Signs: Vital Signs: Last Vital Signs Temp 97.6 F 06/04/25 13:45 Pulse 69 06/04/25 13:45 Resp 14 06/04/25 13:45 BP 124/76 06/04/25 13:45 Pulse Ox 96 06/04/25 13:45 O2 Del Method Room Air 06/04/25 13:45 BMI result Body Mass Index 29.6 Const: General: comfortable, no acute distress and alert GI: Other: Abdomen is soft, benign, nontender Discharge Plan Discharge Anticipated Discharge Date/Time: 06/04/25 13:28 Patient Disposition: Home, Self-Care Discharge Diagnosis: small bowel obstruction, enteritis Referrals: Shanti Lynch MD [Primary Care Provider, Family Practice] - 10 days Discharge Medications: Continued Vitamin D3 PO DAILY Discharge Orders: Discharge Order (Routine); Ordered 06/04/25 Ordered By: Kahlil Mayberry Diet: Advance to usual diet Activity on Discharge: As tolerated Stand Alone Forms: Patient Portal Discharge page Print Language: Serbian Activity Restrictions/Additional Instructions: Call Your Doctor If: -Your temperature exceeds 101.5? F -You experience excessive pain or swelling -You have an unexpected reaction to medication -You have excessive bleeding -You experience continued vomiting/nausea Care Plan Goals: Return to baseline health Health Concerns: Recent small bowel obstruction/enteritis Plan of Treatment: Follow up with primary care physician Assessment: Doing well, symptoms have resolved Discharge Date/Time: 06/04/25 14:01
== END 2025-06-04 14:01 | disposition home or self-care (01) | DRG 247 ==
LOC: HO.ED 14:01 → HO.EDOVER 14:35 → HO.S3 15:11
PROVIDERS: Admitting Provider Surgery; Emergency Provider Emergency Medicine; PCP Family Medicine; Visit Provider Surgery
DX: K56.609 Unspecified intestinal obstruction, unspecified as to partial versus complete obstruction (principal); K52.9 Noninfective gastroenteritis and colitis, unspecified; Z79.899 Other long term (current) drug therapy
CPT/HCPCS: 36415; 74177; 80048; 80053; 83690; 85025; 99221; 99285; J0131; J1171; J1200; J1308; J1885; J2270; J2405; J7120; Q9967

== ENCOUNTER → 2025-05-31 11:07 | Outpatient (BNV) | payer OTHER, SELFPAY | PROVIDERS: Emergency Provider Emergency Medicine; PCP Family Medicine; Visit Provider Radiology Diagnostic Radiology | DX: K56.609 Unspecified intestinal obstruction, unspecified as to partial versus complete obstruction (principal); K76.0 Fatty (change of) liver, not elsewhere classified | CPT/HCPCS: 74177 ==

== ENCOUNTER → 2025-05-31 14:34 | Outpatient (BNV) | payer OTHER, SELFPAY | PROVIDERS: Admitting Provider Surgery; Emergency Provider Emergency Medicine; PCP Family Medicine; Visit Provider Surgery | DX: K56.609 Unspecified intestinal obstruction, unspecified as to partial versus complete obstruction (principal) | CPT/HCPCS: 99232; 99499 ==

== ENCOUNTER 2025-06-13 08:31 | Outpatient (REF) | payer OTHER, SELFPAY ==
--- NOTE | ~2025-06-13 | XR_ITS ---
EXAMINATION: XR SHOULDER, LEFT CLINICAL INFORMATION: M25.512 - Pain in left shoulder COMPARISON: None available. TECHNIQUE: AP view in neutral internal rotation and Y-view projections of the left shoulder. FINDINGS: Degenerative changes in the acromioclavicular joint. No acute cortical disruption or malalignment. Focal 5 mm calcification in the soft tissues above the greater tuberosity. XR/XR shoulder LT min 2V IMPRESSION: Calcific tendinosis/tendinopathy, supraspinatus. Degenerative changes left acromioclavicular joint. Electronically signed by: Eloy Bañuelos MD 06/13/2025 09:20 AM VEENA
== END 2025-06-13 08:32 | disposition home or self-care (01) ==
LOC: HO.HMGCX 08:31
PROVIDERS: PCP Family Medicine; Visit Provider Physician Assistant Medical
DX: M25.512 Pain in left shoulder (principal); M75.31 Calcific tendinitis of right shoulder
CPT/HCPCS: 73030

== ENCOUNTER 2025-06-13 08:31 | Outpatient (AMB) | payer OTHER, SELFPAY ==
--- NOTE | 2025-06-13 08:36 | AM.OFFWIN_ITS ---
Intake Vital Signs 06/13/25 08:37 Height 5 ft 3 in Weight 167 lb BMI 29.6 BP 132/70 Blood Pressure Location Rt brachial Position Sitting Pulse 76 Pulse Source Pulse Oximeter Temp 98.1 F Temp Source Oral Pulse Oximetry (%) 98 Oxygen Delivery Method Room Air Intake Visit Reasons: EP LT shoulder pain, can't lift arm Intake Note: pt presents with left shoulder pain for 3 days-denies injury Patient Tobacco Use Status: Never used Tobacco Allergies No Known Allergies (No Known Allergies*) Allergy (Verified 06/13/25 08:47) Do you need a note to return to daycare/school/sports/work: Yes HPI HPI Comments History of Present Illness Details History of Present Illness - The patient is a 59-year-old female pr esenting with left shoulder pain and immobility. - She reports that the symptoms started suddenly approximately three days ago, beginning with minor pain on Thursday morning and worsening throughout the day. - The patient describes the pain as very severe and sharp, which is worse at night, and notes that she cannot lift the left arm. - The pain remains localized to the left anterior shoulder area and does not radiate down the arm. - She also reports a feeling of stiffnes s in the shoulder. - The patient is right-handed. - She was recently hospitalized for a ba cterial infection in her abdomen and had an intravenous line placed in her right arm during that admission. - She denies any injury, trauma or fall. - She denies numbness or tingling. Physical Exam General: Cooperative, healthy appearing, comfortable, no acute distress and well developed Orientation: Patient oriented x3 Limitations: Unable to lift right arm; very painful, especially when moving in certain directions Neck: Normal visual inspection and Yes full ROM Respiratory: Normal respiratory effort and able to speak in complete sentences. Clear to auscultation bilaterally Cardiovascular: Regular rate and rhythm. Normal S1 and S2. Pulses are 2+ on the UE. Skin: No rashes or lesions noted. No bruising, swelling, or redness noted. Neuro: Sensation intact. Extremities: Decrease ROM of the right shoulder. Unable to lift the right arm. TTP of the right anterior shoulder at the glenohumeral joint. No TTP of the right clavicle, AC joint, bicep, tricep or posterior shoulder. Unable to perform special tests of the shoulder due to her pain. FROM of the right elbow and wrist. Hand sweatband maker is intact. Patient was informed and verbally consented to the use of an ambient scribe for clinic note documentation during this visit. [facility] Social History Household Members: None Housing: House Patient Tobacco Use Status: Never used Tobacco service: No Review of Systems Const All systems reviewed & are unremarkable except as noted in HPI and below Physical Exam Vital Signs: Last Vital Signs Temp 98.1 F 06/13/25 08:37 Pulse 76 06/13/25 08:37 BP 132/70 06/13/25 08:37 Pulse Ox 98 06/13/25 08:37 Oxygen Delivery Method Room Air 06/13/25 08:37 BMI result Body Mass Index 29.6 Results Reviewed Results Reviewed: will review xray in the office IMPRESSION: Calcific tendinosis/tendinopathy, supraspinatus. Degenerative changes left acromioclavicular joint. Assessment & Plan Assessment & Plan (1) Shoulder pain, left: Code(s): M25.512 - Pain in left shoulder Qualifiers: Chronicity: acute Qualified Code(s): M25.512 - Pain in left shoulder Plan Most likely Adhesive Capsulitis Of Right Shoulder vs bursitis vs arthritis vs calcific tendonitis plan - An X-ray of the shoulder will be obtained to rule out other underlying pathology. - Treatment will include a course of steroids, an anti-inflammatory medication, and the use of a sling. - The patient is advised to follow up with her primary care physician to obtain a referral for physical therapy. Orders: Orders XR shoulder LT min 2V Today M25.512 - Pain in left shoulder Medications: New prednisone 40 mg (2 x 20 mg) PO DAILY 10 tabs 0RF 5 days naproxen 500 mg PO Q12H PRN 20 tabs 0RF pain 7 days Coding Level of Care Code Est Pt Level 4 (56147) Diagnoses Acute pain of left shoulder M25.512 Chronicity: acute
[2025-06-13 08:37] VITALS: BP 132/70; PULSE 76; TEMP 36.7; O2SAT 98; BMI 29.6
== END 2025-06-13 09:59 | disposition home or self-care (01) ==
PROVIDERS: PCP Family Medicine; Visit Provider Physician Assistant Medical
DX: M25.512 Pain in left shoulder (principal)

== ENCOUNTER → 2025-06-13 09:06 | Outpatient (BNV) | payer OTHER, SELFPAY | PROVIDERS: PCP Family Medicine; Visit Provider Radiology Diagnostic Radiology | DX: M19.012 Primary osteoarthritis, left shoulder (principal); M75.32 Calcific tendinitis of left shoulder | CPT/HCPCS: 73030 ==

== ENCOUNTER 2025-06-26 09:48 | Outpatient (AMB) | payer OTHER, SELFPAY ==
--- OUTSIDE RECORDS SUMMARY | 2025-06-21 16:29 | XMS_ITS | Encounter Summary ---
[facility] Organization [facility] Address [address] [place] [address] Care Team Providers Care Ordnance Equipment Worker Name Role Phone Shanti Lynch MD Primary Care Pr ovider Reason for Referral * Imaging (Routine) - Pending Review Specialty Diagnoses / Procedures Referred By Rupa araya Referred To Contact Radiology Diagnoses Posterior cervical lymphadenopathy Procedures US Head Neck Soft Tissue Shanti Lynch MD [address] [place] [address] Phone: tel: fax: [address] Phone: tel: Referral ID Status Reason Start Date Expiration Date V isits Requested Visits Authorized [id number] Pending Review 06/19/2025 06/19/2026 1 1 Reason for Visit * Imaging (Routine) - Pending Review Specialty Diagnoses / Procedures Referred By Rupa araya Referred To Contact Radiology Diagnoses Posterior cervical lymphadenopathy Procedures US Head Neck Soft Tissue Shanti Lynch MD [address] [place] [address] Phone: tel: fax: [address] Phone: tel: Referral ID Status Reason Start Date Expiration Date V isits Requested Visits Authorized [id number] Pending Review 06/19/2025 06/19/2026 1 1 Encounter Details Date Type Department Care Team (Latest Contact Info) Description 06/21/2025 4:29 PM EST - 06/21/2025 11:59 PM EST Hospital Encounter Radiology Department - [address] [address] Posterior cervical lymphadenopathy Discharge Disposition: Home or Self Care Social History Tobacco Use Types Packs/Day Years Used Date Smoking Tobacco: Never Smokeless Tobacco: Never Alcohol Use Standard Drinks/Week Comments No 0 (1 standard drink = 0.6 oz pur e alcohol) Housing Instability Answer Date Recorde d Are you worried that in the next 2 months you may not have stable housing? No 06/19/2025 Food Access & Nutrition Answer Date Rec orded Do you have access to a vari ety of food including fruits and vegetables? No 06/19/2025 Access to Healthcare Answer Date Record ed Within the last 3 months, haider richter many times did you visit the emergency department for your medical care? 0 06/19/2025 Health Literacy Answer Date Recorded How often do you need to hav e someone help you when you read instructions, pamphlets, or other written material from your doctor or pharmacy? Never 06/19/2025 Caregiver: How often do you need to have someone help you when you read instructions, pamphlets, or other written material from your doctor or pharmacy? Not on file 06/19/2025 Financial Risk Answer Date Recorded How hard is it for you to pa y for the very basics like food, housing, medical care, and air conditioning / heating? Somewhat hard 06/19/2025 Transportation Answer Date Recorded Has the lack of transportati on kept you from meetings, work, or from getting things needed for daily living? No Has the lack of transportati on kept you from medical appointments or from getting medications? No 06/19/2025 Social Isolation Answer Date Recorded How often do you feel lonely or isolated from th ose around you? Often 06/19/2025 Food Risk Answer Date Recorded Within the past 12 months we worried whether our food would run out before we got money to buy more. Never true 06/19/2025 Within the past 12 months th e food we bought just didn't last and we didn't have money to get more. Never true 06/19/2025 Dependent Care Answer Date Recorded Do you need help finding or paying for care for your loved ones. For example, child center assistant or elderly care for an older adult? No 06/19/2025 Education Answer Date Recorded Do you think completing more education or training, like finishing a GED, going to college, or learning a trade, would be helpful for you? No 06/19/2025 Employment and Income Answer Date Recor ded During the last four weeks, have you been actively looking for work? No 06/19/2025 Living Situation Answer Date Recorded What is your living situation? Unrecognized valu e 06/19/2025 Comments No Sex and Gender Information Value Date Recorded Sex Assigned at Not on file Legal Sex Female 1:56 PM EST Gender Identity Not on file Sexual Orientation Not on file documented as of this encounter Medications at Time of Discharge albuterol HFA (PROAIR HFA ; PROVENTIL HFA ; VENTOLIN HFA) 90 mcg/actuation inhaler TAKE 2 PUFFS BY MOUTH EVERY 3 TO 4 HOURS NEEDED 12/14/2024 cholecalciferol (VITAMIN D-3) 50 mcg (2,000 unit) capsule Take 1 capsule (2,000 Units total) by mouth 1 (one) time each day. 90 each 1 06/07/2025 6 DULoxetine (Cymbalta) [address] capsuleIndications:A nxiety and depression,Lumbar spondylosis Take 1 capsule (30 mg total) by mouth 1 (one) time each day. Do not crush or chew. 90 each 06/19/2025 6 naproxen (NAPROSYN) 500 mg tablet 06/13/2025 omeprazole (PriLOSEC) [address] capsuleIndications:H elicobacter pylori gastritis Take 1 capsule (20 mg total) by mouth 2 (two) times a day. Do not crush or chew. 60 each 06/09/2025 6 ondansetron ODT (ZOFRAN-ODT) 4 mg disintegrating tablet Take 1 tablet (4 mg total) by mouth every 8 (eight) hours if needed. predniSONE (DELTASONE) 20 mg tablet 06/13/2025 amoxicillin (AMOXIL) 500 mg capsuleIndications:H elicobacter pylori gastritis Take 1 capsule (500 mg total) by mouth 2 (two) times a day for 14 days. 28 each 06/09/2025 clarithromycin (BIAXIN) 500 mg tabletIndications:He licobacter pylori gastritis Take 1 tablet (500 mg total) by mouth 2 (two) times a day for 14 days. 28 each 06/09/2025 5 documented as of this encounter Discharge Disposition Disposition Code Departure Means Destination Home or Self Care documented in this encounter Plan of Treatment Upcoming Encounters Date Type Department Care Team (Late st Contact Info) Description 09/18/2025 3:30 PM EDT Office Visit Adult Medicine [address] [phone] Shanti Lynch MD [address] [place] [address] 10/02/2025 2:00 PM EDT Office Visit Urogynecology - [address] [phone] Maria A Payne MD [address] [facility] [address] [place] [address] 03/08/2026 8:00 AM EDT Consult Gastroenterology - [address] [facility] [address] [place] [address] Cira Lares NP [address] [facility] [address] [place] [address] documented as of this encounter Procedures Procedure Name Priority Date/Time Associated Diagnosis Comments US HEAD NECK SOFT TISSUE Routine 06/21/2025 4:36 PM EST Posterior cervical lymphadenopathy documented in this encounter Results * US Head Neck Soft Tissue (06/21/2025 4:36 PM EST) Anatomical Region Laterality Modality Head and Neck Ultrasound 06/21/2025 5:02 PM EST Impressions 06/21/2025 5:04 PM EST No sonographic correlate for the palpable posterior neck lump. -------- FINAL REPORT -------- Dictated By: Leyda Cage Dictated Date: 06/21/2025 17:02 ET Assigned Physician: Leyda Cage Reviewed and Electronically Signed By: Leyda Cage Signed Date: 06/21/2025 17:04 ET Workstation ID: [id number] Transcribed By: Self Edit Transcribed Date: 06/21/2025 17:02 ET Narrative 06/21/2025 5:04 PM EST EXAM: Ultrasound head neck soft tissue HISTORY: Posterior mid neck lump. COMPARISON: None FINDINGS: Patient delineated the palpable lump at the posterior neck. Sonography shows no solid or cystic lesion or fluid collection in the area of concern. Procedure Note Leyda Cage MD - 06/21/2025 EXAM: Ultrasound head neck soft tissue HISTORY: Posterior mid neck lump. COMPARISON: None FINDINGS: Patient delineated the palpable lump at the posterior neck. Sonographyshows no solid or cystic lesion or fluid collection in the area ofconcern. IMPRESSION: No sonographic correlate for the palpable posterior neck lump. -------- FINAL REPORT -------- Dictated By: Leyda Cage Dictated Date: 06/21/2025 17:02 ET Assigned Physician: Leyda Cage Reviewed and Electronically Signed By: Leyda Cage Signed Date: 06/21/2025 17:04 ET Workstation ID: [id number] Transcribed By: Self Edit Transcribed Date: 06/21/2025 17:02 ET us Shanti Lynch MD IMG US PROCEDURE S Final Result documented in this encounter Visit Diagnoses Diagnosis Posterior cervical lymphadenopathy Enlargement of lymph nodes documented in this encounter Additional Health Concerns Assessment Noted Time PHQ-9 Depression Total Score: 14 06/19/ 025 3:01 PM EST documented as of this encounter Care Teams Ordnance Equipment Worker Relationship Specialty Start Date End Date Shanti Lynche, MD [address] [place] [address] PCP - General Internal Medicine 03/03/22 documented as of this encounter
[2025-06-26 10:24] VITALS: BP 106/62; PULSE 63; TEMP 36.8; O2SAT 97; BMI 29.6
--- NOTE | 2025-06-26 10:24 | AM.OFFWIN_ITS ---
Intake Vital Signs 06/26/25 10:24 Height 5 ft 3 in Weight 167 lb BMI 29.6 BP 106/62 Blood Pressure Location Lt brachial Position Sitting Pulse 63 Pulse Source Pulse Oximeter Temp 98.2 F Temp Source Oral Pulse Oximetry (%) 97 Oxygen Delivery Method Room Air Intake Visit Reasons: EP Left arm re evaluation Intake Note: pt presents with need for RTW letter stating can return full duty- states LT shoulder feels fine Patient Tobacco Use Status: Never used Tobacco Allergies No Known Allergies (No Known Allergies*) Allergy (Verified 06/26/25 10:32) Do you need a note to return to daycare/school/sports/work: Yes HPI HPI Comments History of Present Illness Details History of Present Illness - The patient is a 59 year old female pr esenting to obtain a work clearance note. - She reports that her prior left should er pain has completely resolved, and she can now move her arms without issue. - She denies any associated numbness or tingling in her hands. - Her employer did not accept a previous letter because the injury was not sustained at work. - She requires a new note stating she ca n return to work full-time with no restrictions. Physical Exam General: Cooperative, healthy appearing, comfortable, no acute distress and well developed Orientation: Patient oriented x3 Limitations: No limitations Neck: Normal visual inspection and Yes full ROM Respiratory: Normal respiratory effort and able to speak in complete sentences. Clear to auscultation bilaterally Cardiovascular: Regular rate and rhythm. Normal S1 and S2 Skin: No rashes or lesions noted Extremities: Normal to inspection. FROM of the shoulders bilaterally. Strength is 5/5 on the UE bilaterally. Hand medical assistant prn is intact. Patient was informed and verbally consented to the use of an ambient scribe for clinic note documentation during this visit. [facility] Social History Household Members: None Housing: House Patient Tobacco Use Status: Never used Tobacco service: No Review of Systems Const All systems reviewed & are unremarkable except as noted in HPI and below Physical Exam Vital Signs: Last Vital Signs Temp 98.2 F 06/26/25 10:24 Pulse 63 06/26/25 10:24 BP 106/62 06/26/25 10:24 Pulse Ox 97 06/26/25 10:24 Oxygen Delivery Method Room Air 06/26/25 10:24 BMI result Body Mass Index 29.6 Assessment & Plan Assessment & Plan (1) Left arm pain: Code(s): M79.602 - Pain in left arm Plan Most likely pain has improved with treatment for her calcific tendonitis plan - will give her a work note to return to work with no restrictions as her pain has resolved - activities as tolerated - follow up with PCP Coding Level of Care Code Est Pt Level 3 (29398) Diagnoses Left arm pain M79.602
--- OUTSIDE RECORDS SUMMARY | 2025-06-26 11:31 | XMS_ITS | Encounter Summary ---
Author Organization [facility] Address [address] [place] [address] Care Team Providers Care Rug Shampooer Name Role Phone Shanti Lynch MD Primary Care Pr ovider Encounter Details Date Type Department Care Team ([facility] Contact Info) Description 06/20/2025 Results Follow-Up Adult Medicine [address] [phone] Shanti Lynch MD [address] [place] [address] Social History Tobacco Use Types Packs/Day Years [...] Record ed Within the last 3 months, ho w many times did you visit the emergency [...] care for your loved ones. For example, childcare director or elderly care for an older adult? [...] on file documented as of this encounter Plan of Treatment Upcoming Encounters Date Type Department Care Team (Late st Contact Info) Description 09/18/2025 3:30 PM EDT Office Visit Adult Medicine [address] [phone] Shanti Lynch MD [address] [place] [address] 10/02/2025 2:00 PM EDT [facility] [address] [place] [address] Maria A Payne MD [address] [facility] [address] [place] [address] 03/08/2026 8:00 AM EDT Consult Gastroenterology - [address] [facility] [address] [place] [address] Cira Lares, JOSEPH [address] [facility] [address] [place] [address] documented as of this encounter Visit Diagnoses Not on filedocumented in this encounter Additional Health Concerns Assessment Noted Time PHQ-9 Depression Total Score: 14 025 3:01 PM EST documented as of this encounter Care Teams Rug Shampooer Relationship Specialty Start Date End Date Shanti Lynch MD [address] [place], [place] PCP - General Internal Medicine 03/03/22 documented as of this encounter
--- OUTSIDE RECORDS SUMMARY | 2025-06-26 11:31 | XMS_ITS | Clinical Summary ---
Author Organization [facility] Address [address] [address] Phone Care Team Providers Care Green Chain Off Bearer Name Role Phone Shanti Lynch MD Primary [...] Medical Devices Not on file Insurance [facility] HMO Care Teams Green Chain Off Bearer Relationship Specialty Start Date End Date Shanti Lynch MD PCP - General Family Medicine 04/12/23 Additional Source Comments The information contained in this document represents components of the legal health record. It is not the complete legal health record.[facility]
--- OUTSIDE RECORDS SUMMARY | 2025-06-26 11:31 | XMS_ITS | Encounter Summary ---
Author Organization [facility] Address [address] [place] [address] Care Team Providers Care Sales Recruitment Specialist Name Role Phone Shanti Lynch MD Primary Care Pr ovider Encounter Details Date Type Department Care Team (Late Contact Info) Description 06/05/2025 Telephone Adult Medicine [address] [phone] Makayla Shen RN Social History Tobacco Use Types Packs/Day Years [...] Upcoming Encounters Date Type Department Care Team ([facility] Contact Info) Description 09/18/2025 3:30 PM EDT Office Visit Adult Medicine [address] [phone] Shanti Lynch MD [address] [place] [address] 10/02/2025 2:00 PM EDT Office Visit Urogynecology [address] [phone] Maria A Payne MD [address] [place] [address] [place] [address] 03/08/2026 8:00 AM EDT Consult Gastroenterology - [address] [facility] [address] [place] [address] Cira Lares, ARC AIR OPERATOR [address] [place] [address] documented as of this encounter Visit Diagnoses Not on filedocumented in this encounter Care Teams Sales Recruitment Specialist Relationship Specialty Start Date End Date Shanti Lynch MD [address] [facility], [place] PCP - General Internal Medicine 03/03/22 documented as of this encounter
--- OUTSIDE RECORDS SUMMARY | 2025-06-26 11:31 | XMS_ITS | Clinical Summary ---
Author Organization [facility] Prior to 12/03/24 Address [address] [place] [address] Care Team Providers Care Employment Representative Name Role Phone Unavailable Primary Care Provider [...]
--- OUTSIDE RECORDS SUMMARY | 2025-06-26 11:31 | XMS_ITS | Encounter Summary ---
Author Organization [facility] Address [address] [facility] [address] [place] [phone] Phone Care Team Providers Care Regional Ehs Manager Name Role Phone Pcp, Unknown Primary Care Provider Shanti Kwan MD Primary Care Pr ovider Encounter Details Date Type Department Care Team (Late st Contact Info) Description 08/03/2022 Procedure [facility] Scan - [address] [address] Social History Tobacco Use Types Packs/Day Years Used Date Smoking Tobacco: Never Assessed Comments Unknown Sex and Gender Information Value Date Recorded Sex Assigned at Female 08/03/2022 1:13 PM EST Legal Sex Female 1:11 PM EST Gender Identity Female 08/03/2022 1:13 PM EST Sexual Orientation Straight 08/03/2022 1: 13 PM EST documented as of this encounter Plan of Treatment Not on file documented as of this encounter Visit Diagnoses Not on filedocumented in this encounter Care Teams Regional Ehs Manager Relationship Specialty Start Date End Date Pcp, Unknown PCP - General 08/03/22 04/11/23 Shanti Lynch MD PCP - General Family Medicine 04/12/23 documented as of this encounter Additional Source Comments The information contained in this document represents components of the legal health record. It is not the complete legal health record.[facility]
--- OUTSIDE RECORDS SUMMARY | 2025-06-26 11:32 | XMS_ITS | Clinical Summary ---
Author Organization [address] [facility] Address [address] [place] [address] Phone Care Team Providers Care Line Service Person Name Role Phone Shanti Lynch MD Primary Care Pr ovider Allergies Active Allergy Reactions Criticality Noted Date Comments Grass Pollen 06/19/2025 Medications ondansetron ODT (ZOFRAN-ODT) 4 mg disintegrating tablet Take 1 tablet (4 mg total) by mouth every 8 (eight) hours if needed. Active albuterol HFA (PROAIR HFA ; PROVENTIL HFA ; VENTOLIN HFA) 90 mcg/actuation inhaler TAKE 2 PUFFS BY MOUTH EVERY 3 TO 4 HOURS NEEDED 12/15/19 25 Active cholecalciferol (VITAMIN D-3) 50 mcg (2,000 unit) capsule Take 1 capsule (2,000 Units total) by mouth 1 (one) time each day. 90 each 1 06/07/20 25 026 Active omeprazole (PriLOSEC) [address] capsuleIndications :Helicobacter pylori gastritis Take 1 capsule (20 mg total) by mouth 2 (two) times a day. Do not crush or chew. 60 each 06/09/20 25 026 Active naproxen (NAPROSYN) 500 mg tablet 06/13/20 25 Active predniSONE (DELTASONE) 20 mg tablet 06/13/20 25 Active DULoxetine (Cymbalta) [address] capsuleIndications :Anxiety and depression,Lumbar spondylosis Take 1 capsule (30 mg total) by mouth 1 (one) time each day. Do not crush or chew. 90 each 12/15/ 026 Active cholecalciferol (VITAMIN D-3) 50 mcg (2,000 unit) capsule Take 1 capsule (2,000 Units total) by mouth 1 (one) time each day. 04/06/20 24 Discontinu ed(Reorder ) hydrOXYzine HCL (ATARAX) 25 mg tablet Take 1 tablet (25 mg total) by mouth 1 (one) time each day in the evening. 07/01/20 22 Discontinu ed(Therapy completed) meclizine (ANTIVERT) 25 mg tablet Take 1 tablet (25 mg total) by mouth 3 (three) times a day if needed. Discontinu ed(Therapy completed) venlafaxine (EFFEXOR) 37.5 mg tablet TAKE 1 TABLET BY MOUTH AT BEDTIME FOR 7 DAYS, THEN 2 TABLETS AT BEDTIME Discontinu ed(Non-com pliance) estradioL (ESTRACE) 0.01 % (0.1 mg/gram) vaginal cream 1g PV nightly x2 weeks then twice weekly thereafter 34 g 3 02/28/20 25 Discontinu ed(Non-com pliance) amoxicillin (AMOXIL) 500 mg capsuleIndications :Helicobacter pylori gastritis Take 1 capsule (500 mg total) by mouth 2 (two) times a day for 14 days. 28 each 06/09/20 25 clarithromycin (BIAXIN) 500 mg tabletIndications: Helicobacter pylori gastritis Take 1 tablet (500 mg total) by mouth 2 (two) times a day for 14 days. 28 each 06/09/20 Active Problems Problem Noted Date Diagnosed Date Helicobacter pylori gastritis 06/09/2025 Assessment & Plan (06/19/2025 10:14 PM EST): Continue clarithromycin, amoxicillin and omeprazole. She will complete treatment on 06/23/25. She will complete H pylori CORNELIO one month after treatment SI joint arthritis 06/07/2025 Hepatic steatosis 06/07/2025 Assessment & Plan (06/07/2025 1:50 PM EST): Liver function testing done in the hospital was normal Lifestyle counseling provided Anxiety and depression 06/17/2024 Assessment & Plan (06/19/2025 10:14 PM EST): Start duloxetine 30mg daily She was previously able to tolerate medication Orders: DULoxetine (Cymbalta) [address] capsule; Take 1 capsule (30 mg total) by mouth 1 (one) time each day. Do not crush or chew. DJD (degenerative joint disease) of cervical spi ne 04/07/2024 Lumbar spondylosis 04/07/2024 Assessment & Plan (06/19/2025 10:14 PM EST): Start duloxetine daily Orders: DULoxetine (Cymbalta) [address] capsule; Take 1 capsule (30 mg total) by mouth 1 (one) time each day. Do not crush or chew. Trochanteric bursitis of left hip 04/07/2024 Primary insomnia 04/06/2024 Arthralgia of left knee 01/28/2023 Mixed hyperlipidemia 01/23/2023 Assessment & Plan (06/19/2025 10:14 PM EST): Lifestyle counseling provided Orders: Lipid panel with reflex to direct LDL; Future Assessment & Plan (06/07/2025 1:50 PM EST): Lifestyle counseling provided Orders: Lipid panel with reflex to direct LDL; Future Neuroforaminal stenosis of lumbosacral spine Chronic urticaria 09/29/2022 Class 1 obesity 09/29/2022 Assessment & Plan (06/19/2025 10:14 PM EST): Lifestyle counseling provided She is not interested in weight loss medication at this time Prediabetes 01/30/2020 Assessment & Plan (06/19/2025 10:14 PM EST): Lifestyle counseling provided. She defers medication mgt for now Orders: Hemoglobin A1c; Future Assessment & Plan (06/07/2025 1:50 PM EST): Lifestyle counseling provided Orders: Hemoglobin A1c; Future Vitamin D insufficiency 10/04/2018 Assessment & Plan (06/07/2025 1:50 PM EST): She will continue with OTC vitamin D daily States she just ordered some from [employer] ARTHUR (stress urinary incontinence, female) 2017 Overview [...] Encounters Date Type Department Care Team Description 06/21/2025 4:29 PM EST - 06/21/2025 11:59 PM EST Hospital Encounter Radiology Department - [address] [phone] Posterior cervical lymphadenopathy Discharge Disposition: Home or Self Care 06/20/2025 Results Follow-Up Adult Medicine [address] [phone] Shanti Lynch MD 06/19/2025 4:00 PM EST - 06/19/2025 11:59 PM EST Hospital Encounter XRAY - [address] [phone] Posterior neck pain Discharge Disposition: Home or Self Care 06/19/2025 3:00 PM EST Office Visit Adult Medicine [address] [phone] Shanti Lynch MD Annual physical exam (Primary Dx); Anxiety and depression; Helicobacter pylori gastritis; Mixed hyperlipidemia; Prediabetes; Colon cancer screening; Posterior neck pain; Posterior cervical lymphadenopathy; Lumbar spondylosis; Class 1 obesity 06/14/2025 11:00 AM EST Office Visit Adult [address] [phone] Hue Cruz PA Acute pain of left shoulder (Primary Dx); Calcific tendonitis of left shoulder 06/12/2025 Telephone Adult [address] [phone] Tonya Siddiqui MA 06/09/2025 8:30 AM EST Lab Draw [address] Gastroesophageal reflux disease without esophagitis; Epigastric abdominal pain; Normocytic anemia; Prediabetes; Mixed hyperlipidemia 06/09/2025 Results Follow-Up [address] [phone] Shanti Lynch MD 06/07/2025 1:00 PM EST Office Visit Adult [address] [phone] Shanti Lynch MD Hospital discharge follow-up (Primary Dx); Diarrhea, unspecified type; Gastroesophageal reflux disease without esophagitis; Epigastric abdominal pain; Abnormal CT of the abdomen; Mixed hyperlipidemia; Prediabetes; Vitamin D insufficiency; Need for vaccination against Streptococcus pneumoniae; Normocytic anemia; Hepatic steatosis 06/05/2025 Telephone Adult [address] [phone] Makayla Shen, RN 06/05/2025 Telephone Adult Medicine [address] [phone] Shanti Lynch MD 06/02/2025 Telephone Adult [address] [phone] Makayla Shen, RN from Last 3 Months Immunizations Immunization Administration Dates Next Due Influenza Quadravalent, 0.5m l (Fluad) 65yo and older 04/14/2023 Influenza Quadravalent, MDCK , 0.5ml, preservative free (Flucelvax) 6mo and older 03/06/2025,04/03/2022 Influenza trivalent, 0.5mL, preservative free (Fluarix; FluLaval; Fluzone) ages 6mo and older (Afluria) 3 years and older 03/23/2024 Moderna SARS-CoV-2 COVID-19, mRNA, LNP-S, preservative free 03/23/2024 PPD Test 09/29/2017 Pfizer SARS-CoV-2 COVID-19, mRNA, LNP-S, preservative free 05/10/2021,08/05/2020,07/15/2020 Pneumococcal conjugate 20 va lent (Prevnar 20, PCV 20) 2mo and older 06/07/2025 Tdap Tetanus diptheria acell ular pertussis (Boostrix; [...] Grandfather Maternal Grandmother Mother Depression, T2D M, [place], [place] Paternal Grandfather unknown Paternal Grandmother unknown [...] for your loved ones. For example, child and adolescent psychologist or elderly care for an older adult? [...] Sign Reading Time Taken Comments Blood Pressure 110/65 06/19/2025 2:52 PM EST Pulse 90 06/19/2025 2:52 PM EST Temperature 36.9 C (98.5 F) 06/19/2025 2:52 PM EST Respiratory Rate 14 06/19/2025 2:52 PM EST Oxygen Saturation 96% 06/07/2025 1:08 PM EST Inhaled Oxygen Concentration - - Weight 75.8 kg (167 lb) 06/19/2025 2:52 PM EST Height 155.6 cm (5' 1.25 ) 06/19/2025 2:52 PM ES T Body Mass Index 31.3 06/19/2025 2:52 PM EST Plan of Treatment Upcoming Encounters Date Type Department Care Team (Late st Contact Info) Description 09/18/2025 3:30 PM EDT Office Visit Adult Medicine [address] [phone] Shanti Lynch MD [address] [place] [address] 10/02/2025 2:00 PM EDT Office Visit Urogynecology [address] [phone] Maria A Payne MD [address] [facility] [address] [place] [address] 03/08/2026 8:00 AM EDT Consult Gastroenterology - [address] [facility] [address] [place] [address] Cira Lares, JOSEPH [address] [facility] [address] [place] [address] Health Maintenance Due Date Last Done Comments Zoster Vaccines (1 of 2) 09/10/2015 Cervical Cancer Screening: HPV 10/16/2025 10/16/2020 Social Influencers of Health Screening 06/19/2026 06/19/2025 Breast Cancer Screening 10/17/2026 10/17/2024, 12/09 DTaP,Tdap,and Td Vaccines (2 - Td or Tdap) 10/01/2028 10/01/2018 Cholesterol Screening (Lipid Panel) 06/09/2030 06/09/2025, 04/15/2024, 04/15/2024 Colorectal Cancer Screening: Colonoscopy 06/20/2035 06/20/2025 RSV Immunization Adult Patients (1 - 1-dose 75+ series) 2040 Hepatitis C Screening Completed 10/15/2011 HIV Screening Completed 06/10/2017 COVID-19 Vaccine Discontinued 03/23/2024, 07/2021, 05/10/2021, Additional history exists Influenza Vaccine Completed 03/06/2025, , 04/14/2023, Additional history exists Pneumococcal Vaccine: 50+ Years Completed 06/07/2025 Depression Screening Completed 06/19/2025 HIB Vaccines Aged Out No longer eligi ble based on patient's age to complete this topic HPV Vaccines Aged Out No longer eligi ble based on patient's age to complete this topic Hepatitis A Vaccines Aged Out No long er eligible based on patient's age to complete this topic Hepatitis B Vaccines Discontinued IPV Vaccines Aged Out No longer eligi [...] 20 months Aged Out No longer eligible based on patient's age to complete this topic Varicella Vaccines Aged Out No longer eligible based on patient's age to complete this topic Procedures Procedure Name Priority Date/Time Associated Diagnosis Comments US HEAD NECK SOFT TISSUE Routine 06/21/2025 4:36 PM EST Posterior cervical lymphadenopathy COLONOSCOPY Routine 06/20/2025 1:53 PM EST XR CERVICAL SPINE 4-5 VIEWS Routine 06/19/2025 4:09 PM EST Posterior neck pain CBC WITH AUTO DIFFERENTIAL Routine 06/09/2025 8:49 AM EST Normocytic anemia LIPID PANEL WITH REFLEX TO DIRECT LDL Routine 06/09/2025 8:49 AM EST Mixed hyperlipidemia HEMOGLOBIN A1C Routine 06/09/2025 8:49 AM EST Prediabetes CBC AND DIFFERENTIAL Routine 06/09/2025 8:49 AM EST Normocytic anemia FERRITIN Routine 06/09/2025 8:49 AM EST Normocytic anemia IRON AND TIBC Routine 06/09/2025 8:49 AM EST Normocytic anemia VITAMIN B12 Routine 06/09/2025 8:49 AM EST Normocytic anemia FOLATE Routine 06/09/2025 8:49 AM EST Normocytic anemia HEMOGLOBIN ELECTROPHORESIS Routine 06/09/2025 8:49 AM EST Normocytic anemia HELICOBACTER PYLORI BREATH TEST Routine 06/09/2025 8:49 AM EST Gastroesophageal reflux disease without esophagitis Epigastric abdominal pain MG MAMMO DIGITAL DIAGNOSTIC BILAT Routine 10/17/2024 1:35 PM EDT HM HPV Routine 10/16/2020 HIV SCREENING Routine 06/10/2017 HEPATITIS C SCREENING Routine 10/15/2011 from Last 3 Months or Most Recently Relevant to Health Maintenance Results * US Head Neck Soft Tissue [...] Signed Date: 06/21/2025 17:04 ET Workstation ID: [id number] Transcribed By: Self Edit Transcribed Date: 06/21/2025 [...] Signed Date: 06/21/2025 17:04 ET Workstation ID: [id number] Transcribed By: Self Edit Transcribed Date: 06/21/2025 17:02 ET Shanti Lynch MD IMG US PROCEDURE S Final Result * COLONOSCOPY (06/20/2025 1:53 PM EST) Anatomical Region Laterality Modality Endoscopy Historical Provider GI~PROCEDURE ORDERABLES F inal Result * XR Cervical Spine 4-5 Views (06/19/2025 4:09 PM EST) Anatomical Region Laterality Modality Spine, C-spine Radiographic Bianca ging 06/20/2025 8:00 PM EST Impressions 06/20/2025 8:02 PM EST Mild degenerative changes of the cervical spine. -------- FINAL REPORT -------- Dictated By: Marlon Vogt Dictated Date: 06/20/2025 20:00 ET Assigned Physician: Marlon Vogt Reviewed and Electronically Signed By: Marlon Vogt Signed Date: 06/20/2025 20:02 ET Workstation ID: [id number] Transcribed By: Self Edit Transcribed Date: 06/20/2025 20:00 ET Narrative 06/20/2025 8:02 PM EST HISTORY: neck pain TECHNIQUE: 4 views of the cervical spine COMPARISON: Cervical spine radiograph from 04/06/2024 FINDINGS: The cervical spine is visualized from C1-C7. Vertebral body height is grossly maintained. Decreased disc height at C5-C6. There is grade 1 retrolisthesis of C5 on C6. Mild neuroforaminal stenosis of the cervical spine. No acute fracture or dislocation is seen. There is no prevertebral soft tissue swelling. Procedure Note Marlon Vogt MD - 06/20/2025 HISTORY: neck pain TECHNIQUE: 4 views of the cervical spine COMPARISON: Cervical spine radiograph from 04/06/2024 FINDINGS: The cervical spine is visualized from C1-C7. Vertebral body height isgrossly maintained. Decreased disc height at C5-C6. There is grade 1retrolisthesis of C5 on C6. Mild neuroforaminal stenosis of the cervicalspine. No acute fracture or dislocation is seen. There is no prevertebralsoft tissue swelling. IMPRESSION: Mild degenerative changes of the cervical spine. -------- FINAL REPORT -------- Dictated By: Marlon Vogt Dictated Date: 06/20/2025 20:00 ET Assigned Physician: Marlon Vogt Reviewed and Electronically Signed By: Marlon Vogt Signed Date: 06/20/2025 20:02 ET Workstation ID: [id number] Transcribed By: Self Edit Transcribed Date: 06/20/2025 20:00 ET Shanti Lynch MD IMG XR PROCEDURE S Final Result * (ABNORMAL) Lipid panel with reflex to direct LDL (06/09/2025 8:49 AM EST) Cholesterol 243(H) 0 - 200 mg/dL 06/09/2025 3:12 PM [facility] Triglycerides 55 0 - 150 mg/dL 06/09/2025 3:12 PM [facility] HDL 76 >=40 mg/dL 06/09/2025 3:12 PM [facility] LDL Calculated 156(H) 0 - 100 mg/dL 06/09/2025 3:12 PM [facility] Comment:Estimated LDL Calcul ated using equation: Total cholesterol - HDL cholesterol - (Triglycerides/5) VLDL Cholesterol Franck 11 mg/dL 06/09/2025 3:12 PM [facility] Non HDL Chol. (LDL+VLDL) 167(H) <145 mg/dL 06/09/2025 3:12 PM [facility] Chol/HDL Ratio 3.2 0.0 - 4.4 06/09/2025 3:12 PM [facility] Blood Venous blood specimen / Unknown Venipuncture / Unknown 06/09/2025 8:49 AM EST 06/09/2025 8:49 AM EST us Omanpreetkansola Oyenike Ogundipe MD LAB BLOOD ORDERA BLES Final Result [facility] [address] [place] [address], [place] [phone] * (ABNORMAL) CBC auto differential (06/09/2025 8:49 AM EST) WBC 5.5 4.8 - 10.8 K/mcL LAB HEMETOLOGY METHOD 06/09/2025 10:18 AM [facility] RBC 4.40 3.80 - 4.80 M/mcL LAB HEMETOLOGY METHOD 06/09/2025 10:18 AM [facility] Hemoglobin 12.0 11.5 - 16.0 g/dL LAB HEMETOLOGY METHOD 06/09/2025 10:18 AM [facility] Hematocrit 38.0 35.0 - 47.0 % LAB HEMETOLOGY METHOD 06/09/2025 10:18 AM [facility] MCV 86.8 79.0 - 98.0 FL LAB HEMETOLOGY METHOD 06/09/2025 10:18 AM [facility] MCH 27.4 27.0 - 32.0 pcg LAB HEMETOLOGY METHOD 06/09/2025 10:18 AM [facility] MCHC 31.6(L) 32.0 - 37.0 g/dL LAB HEMETOLOGY METHOD 06/09/2025 10:18 AM [facility] RDW 13.4 11.0 - 15.0 % LAB HEMETOLOGY METHOD 06/09/2025 10:18 AM [facility] Platelets 201 130 - 400 K/mcL LAB HEMETOLOGY METHOD 06/09/2025 10:18 AM [facility] MPV 11.6(H) 7.0 - 11.0 FL LAB HEMETOLOGY METHOD 06/09/2025 10:18 AM [facility] NRBC 0.0 <1.0 % LAB HEMETOLOGY METHOD 06/09/2025 10:18 AM [facility] NRBC Absolute 0.00 <0.10 K/mcL LAB HEMETOLOGY METHOD 06/09/2025 10:18 AM [facility] Neutrophils Relative 51.8 % LAB HEMETOLOGY METHOD 06/09/2025 10:18 AM [facility] Lymphocytes Relative 38.4 % LAB HEMETOLOGY METHOD 06/09/2025 10:18 AM [facility] Monocytes Relative 8.0 % LAB HEMETOLOGY METHOD 06/09/2025 10:18 AM [facility] Eosinophils Relative 1.1 % LAB HEMETOLOGY METHOD 06/09/2025 10:18 AM [facility] Basophils Relative 0.5 % LAB HEMETOLOGY METHOD 06/09/2025 10:18 AM [facility] Immature Granulocytes Relative 0.2 % LAB HEMETOLOGY METHOD 06/09/2025 10:18 AM [facility] Neutrophils Absolute 2.84 1.50 - 7.00 K/mcL LAB HEMETOLOGY METHOD 06/09/2025 10:18 AM [facility] Lymphocytes Absolute 2.11 1.00 - 5.00 K/mcL LAB HEMETOLOGY METHOD 06/09/2025 10:18 AM [facility] Monocytes Absolute 0.44 0.20 - 1.00 K/mcL LAB HEMETOLOGY METHOD 06/09/2025 10:18 AM [facility] Eosinophils Absolute 0.06 0.00 - 0.50 K/mcL LAB HEMETOLOGY METHOD 06/09/2025 10:18 AM [facility] Basophils Absolute 0.03 0.00 - 0.20 K/mcL LAB HEMETOLOGY METHOD 06/09/2025 10:18 AM EST [facility] Immature Granulocytes Absolute 0.01 0.00 - 0.03 K/mcL LAB HEMETOLOGY METHOD 06/09/2025 10:18 AM EST [facility] Blood Venous blood specimen / Unknown Venipuncture / Unknown 06/09/2025 8:49 AM EST 06/09/2025 8:49 AM EST Shanti Lynch MD LAB BLOOD ORDERA BLES Final Result [facility] [address] [place] [address], * (ABNORMAL) Hemoglobin electrophoresis (06/09/2025 8:49 AM EST) Hemoglobin A1 97.5 96.5 - 97.8 % 06/12/2025 1:41 PM EST [facility] Hemoglobin A2 2.0(L) 2.2 - 3.2 % 06/12/2025 1:41 PM EST [facility] Hemoglobin F 0.5 <2.0 % 06/12/2025 1:41 PM EST [facility] Hemoglobin S 0.0 0.0 % 06/12/2025 1:41 PM EST [facility] Hemoglobin C 0.0 0.0 % 06/12/2025 1:41 PM EST [facility] Interpretation See Below 06/12/2025 1:41 PM EST [facility] Comment: No abnormal hemoglobin variants seen on hemoglobin electrophoresis. Hemoglobin A2 is decreased. Common causes include, but are not limited to, iron deficiency, alpha thalassemia, and delta thalassemia. Test performed at [facility], [address] , [place] [phone] Radha Harden MD, PhD - [employer] Blood Venous blood specimen / Unknown Venipuncture / Unknown 06/09/2025 8:49 AM EST 06/09/2025 8:49 AM EST Shanti Lynch MD LAB BLOOD ORDERA BLES Final Result [facility] [address] [place] [address] * Iron and TIBC (06/09/2025 8:49 AM EST) Iron 128 40 - 150 mcg/dL 06/09/2025 3:12 PM EST [facility] TIBC 308 250 - 450 mcg/dL 06/09/2025 3:12 PM EST [facility] Iron Saturation 42 15 - 50 % 3:12 PM EST [facility] Blood Venous blood specimen / Unknown Venipuncture / Unknown 06/09/2025 8:49 AM EST 06/09/2025 8:49 AM EST Shanti Lynch MD LAB BLOOD ORDERA BLES Final Result Performing Organization Address [facility]/ZIP Co de Phone Number [facility] [address] [place] [address], [place] [phone] * (ABNORMAL) Helicobacter pylori breath test (06/09/2025 8:49 AM EST) H Pylori Breath Test Positive( A) Negative LAB CHEMISTRY METHOD 06/09/2025 11:02 AM EST [facility] Breath Oral cavity structure / Unknown Non-blood Collection / Unknown 06/09/2025 8:49 AM EST 06/09/2025 8:49 AM EST Shanti Lynch MD LAB BODY FLUIDS AND STOOLS ORDERABLES Final Result [facility] [address] [place] [address], [place] [phone] * Hemoglobin A1c (06/09/2025 8:49 AM EST) Pathologist [facility] Hemoglobin A1C 6.4 <6.5 % LAB CHEMISTRY METHOD 06/09/2025 12:56 PM EST [facility] Mean Bld Glu Estim. 137 mg/dL LAB CHEMISTRY METHOD 06/09/2025 12:56 PM EST [facility] Blood Venous blood specimen / Unknown Venipuncture / Unknown 06/09/2025 8:49 AM EST 06/09/2025 8:49 AM EST us Shanti Lynch MD LAB BLOOD ORDERA BLES Final Result Performing Organization Address [facility]/ZIP Co de Phone Number [facility] [address] [place] [address], [place] [phone] * Folate (06/09/2025 8:49 AM EST) [facility] Folate 23.9 >=5.4 ng/ml 06/09/2025 3:05 PM EST [facility] Blood Venous blood specimen / Unknown Venipuncture / Unknown 06/09/2025 8:49 AM EST 06/09/2025 8:49 AM EST Narrative [facility] - 06/09/2025 3:05 PM EST Over the counter supplements containing high doses of biotin may interfere with this assay. If interference is suspected, patients shoud be retested after refraining from biotin supplements for 72 hours. Shanti Lynch MD LAB BLOOD ORDERA BLES Final Result [facility] [address] [place] [address], [place] [phone] * Ferritin (06/09/2025 8:49 AM EST) [facility] Ferritin 172 7 - 271 ng/mL 06/09/2025 3:02 PM EST [facility] Blood Venous blood specimen / Unknown Venipuncture / Unknown 06/09/2025 8:49 AM EST 06/09/2025 8:49 AM EST Shanti Lynch MD LAB BLOOD ORDERA BLES Final Result Performing Organization Address City/[facility]/ZIP Co de Phone Number [facility] [address] [place] [address], [place] [phone] * Vitamin B12 (06/09/2025 8:49 AM EST) [facility] Vitamin B-12 598 211 - 911 pcg/mL 06/09/2025 3:07 PM EST [facility] Blood Venous blood specimen / Unknown Venipuncture / Unknown 06/09/2025 8:49 AM EST 06/09/2025 8:49 AM EST Shanti Lynch MD LAB BLOOD ORDERA BLES Final Result Performing Organization Address [facility]/ZIP Co de Phone Number [facility] [address] [place] [address], [place] [phone] * MG Mammo Digital Diagnostic bilat (10/17/2024 1:35 PM EDT) Anatomical Region Laterality Modality Breast Bilateral Mammography Historical Provider IMG BI PROCEDURES Final R esult * Cervical Cancer Screening: HPV (10/16/2020) Pathologist [facility] Cervical Cancer Screening: HPV negative, abstracted Historical Provider HEALTH MAINTENANCE Final Result * HIV Screening (06/10/2017) [facility] HIV Screening abstracted Historical Provider HEALTH MAINTENANCE Final Result * Hepatitis C Screening (10/15/2011) Pathologist [facility] Hepatitis C Screening abstracted [facility] Provider HEALTH MAINTENANCE Final Result from Last 3 Months or Most Recently Relevant to Health Maintenance Insurance [facility] Care Teams Line Service Person Relationship Specialty Start Date End Date Shanti Lynch MD [address] [place] [facility], [place] PCP - General Internal Medicine 03/03/22
== END 2025-06-26 11:24 | disposition home or self-care (01) ==
PROVIDERS: PCP Family Medicine; Visit Provider Physician Assistant Medical
DX: M79.602 Pain in left arm (principal)